=== PATIENT | male | born 1980 | race African-American/Black ===

== ENCOUNTER 2023-12-26 14:51 | Emergency (ER) | payer OTHER, SELFPAY ==
[2023-12-26 15:18] VITALS: PULSE 75; O2SAT 97; BMI 65.8
[2023-12-26 15:35] VITALS: BP 145/85; PULSE 78; RESP 18; TEMP 36.6; O2SAT 96
[2023-12-26 15:45] LABS: Glucose, Whole Blood 111 mg/dL (60-115)
--- NOTE | 2023-12-26 16:32 | ED.MALEGU ---
HPI - Male Genitourinary General Chief complaint: Urogenital-Male Stated complaint: penis pain w/discharge,from [place] per ems Time Seen by Provider: 12/26/23 16:29 Source: patient Mode of arrival: EMS Limitations: no limitations History of Present Illness HPI Narrative: Patient diabetic came from [facility] for lesions on the penis for last few days with increased pain patient has been using the nystatin powder without much relief has small ulcerated area. Blood sugar well controlled no fever no chills Related Data Previous Rx's Medication Instructions Recorded cefuroxime axetil 500 mg tablet 500 mg PO BID 7 days #14 tabs 12/26/23 nystatin 100,000 unit/gram topical 1 appl topical BID #60 grams 12/26/23 powder (Klayesta) tramadol 50 mg tablet 50 mg PO Q6H PRN pain #20 tabs 12/26/23 valacyclovir 1 gram tablet 1,000 mg PO TID #20 tabs 12/26/23 (Valtrex) Allergies Allergy/AdvReac Type Severity Reaction Status Date / Time No Known Allergies Allergy Verified 12/26/23 15:56 Review of Systems Review of Systems: Yes all other systems are reviewed and are negative [facility] Social History Social History Smoked in Last 30 Days: Yes Use of substances other than those prescribed or required for medical reasons: No Advance Directives: No Advance Directives Information Provided: No Physical Exam Vital Signs: Vital Signs: Last Vital Signs Temp 97.8 F 12/26/23 15:35 Pulse 110 H 12/26/23 16:41 Resp 16 12/26/23 16:41 BP 129/88 12/26/23 16:41 Pulse Ox 96 12/26/23 16:41 O2 Del Method Room Air 12/26/23 16:41 BMI result Body Mass Index 65.8 Appearance: Alert. Oriented X3. No acute distress. Obese CVS: Normal heart rate and rhythm. Pulses normal. Respiratory: No respiratory distress. Equal air entry bilateral, Abdomen: Soft and nontender. Bowel sounds are present, : Inflamed circumcised penis and the skin around the difficult to evaluate because of the habitus does have ulcerative lesions on the left side skin of the penis and groin area? Herpes genitalis? Neuro: Oriented X 3. Medications Administered Discontinued Medications Generic Name Dose Route Start Last Admin Trade Name Luz PRN Reason Stop Dose Admin Cephalexin HCl 500 mg 12/26/23 16:44 12/26/23 16:51 Cephalexin 500 Mg Capsule PO 12/26/23 16:45 500 mg ONCE ONE Administration Fluconazole 100 mg 12/26/23 16:44 12/26/23 16:51 Fluconazole 100 Mg Tablet PO 12/26/23 16:45 100 mg ONCE ONE Administration Tramadol HCl 50 mg 12/26/23 16:54 12/26/23 17:00 Tramadol Hcl 50 Mg Tablet PO 12/26/23 16:55 50 mg ONCE ONE Administration Valacyclovir HCl 1,000 mg 12/26/23 16:44 12/26/23 16:51 Valacyclovir Hcl 1,000 Mg Tablet PO 12/26/23 16:45 1,000 mg ONCE ONE Administration Medical Decision Making Medical Decision Making [facility] Narrative: Patient with intertrigo in the scrotal area along with ulcerated lesion likely shingles with increased pain will prescribe Valtrex, Keflex, advised to continue his nystatin powder Differential Diagnosis Differential Diagnoses: The differential diagnosis associated with the presentation includes UTI/STI/herpes/balanitis Lab Data [facility] Lab Attestation statement: I reviewed the patient's lab results. Labs: Lab Results 12/26/23 12/26/23 Range/Units 15:41 16:53 POC Glucose 111 (60-115) mg/dL Urine Color Yellow Urine Appearance Hazy Urine pH 5.5 (5.0-9.0) Ur Specific [place] >= 1.030 H (1.005-1.025) Urine Protein 30 (1+) H (Neg-Trace) mg/dL Urine Glucose (UA) Negative (Negative) mg/dL Urine Ketones Trace (Negative) mg/dL Urine Blood Moderate (2+) H (Negative) Urine Nitrite Negative (Negative) Ur Leukocyte Esterase Moderate (2+) H (Negative) Urine RBC >20 H (0-2) /HPF Urine WBC >50 H (0-5) /HPF Ur Squamous Epith Cells 3-5 (0-2) /HPF Urine Bacteria 3+ (None Seen) Hyaline Casts 3-5 (0-2) /LPF Discharge Plan Discharge Clinical Impression: Urinary tract infection, 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, Candidal intertrigo Patient Disposition: Home, Self-Care Instructions: Genital Herpes Simplex (ED), Urinary Tract Infection in Men (ED), Skin Yeast Infection (ED) Additional Instructions: Take medication as prescribed for likely herpes lesions Antibiotic for UTI and skin infection Continue to use nystatin powder twice daily Tramadol for pain Follow with PCP if not better Prescriptions: New tramadol 50 mg tablet 50 mg PO Q6H PRN (Reason: pain) Qty: 20 0RF cefuroxime axetil 500 mg tablet 500 mg PO BID 7 Days Qty: 14 0RF valacyclovir [Valtrex] 1 gram tablet 1,000 mg PO TID Qty: 20 0RF nystatin [Klayesta] 100,000 unit/gram powder 1 appl topical BID Qty: 60 0RF Interventions: ED Discharge Assessment Last Done: 12/26/23 18:15 Discharge Date/Time: 12/26/23 18:17
[2023-12-26 16:41] VITALS: BP 129/88; PULSE 110; RESP 16; O2SAT 96
[2023-12-26] MEDS: valACYclovir HCL 1,000 MG TABLET 1000 MG PO (16:51)
[2023-12-26] MEDS: Fluconazole 100 MG TABLET PO (16:51)
[2023-12-26] MEDS: cephALEXin 500 MG CAPSULE PO (16:51)
[2023-12-26] MEDS: traMADoL HCL 50 MG TABLET PO (17:00)
[2023-12-26 17:12] LABS: Appearance Urine Hazy; Color Urine Yellow; Glucose Urine UA Negative (Negative); Leukocyte Esterase Urine Moderate (2+) (Negative); Nitrite Urine Negative (Negative); PH 5.5 (5.0-9.0); Specific Gravity - Urine >= 1.030 (1.005-1.025); UMIC TRIGGER UACC YES; Urine Blood Moderate (2+) (Negative); Urine Ketones Trace mg/dL (Negative); Urine Protein 30 (1+) mg/dL (Neg-Trace)
[2023-12-26 17:19] LABS: Bacteria Urine 3+ (None Seen); RBC Urine >20 /HPF (0-2); UACC Culture Trigger YES; WBC Urine >50 /HPF (0-5)
--- NOTE | 2023-12-26 18:15 | PC.NURSE ---
report called to milton ann rn, informed of impending arrival from [facility] [place]
[2023-12-27 09:39] LABS: CT PCR NOT DETECTED (Not Detect.); NG PCR NOT DETECTED (Not Detect.)
== END 2023-12-26 18:17 | disposition home or self-care (01) ==
PROVIDERS: Emergency Provider Internal Medicine
DX: N39.0 Urinary tract infection, site not specified (principal); B00.9 Herpesviral infection, unspecified; L30.4 Erythema intertrigo; B37.2 Candidiasis of skin and nail; N48.89 Other specified disorders of penis; Z72.89 Other problems related to lifestyle
CPT/HCPCS: 0353U; 81001; 81003; 82947; 87086; 87147; 99283; 99284

== ENCOUNTER 2024-09-22 07:03 | Inpatient (IN) | payer MEDICARE, MEDICAID, SELFPAY ==
[2024-09-22] VITALS (10 sets, daily range): BP systolic 120–146; BP diastolic 36–95; PULSE 114–140; RESP 20–46; TEMP 36.4–36.9; O2SAT 86–97; BMI 66.6
--- NOTE | 2024-09-22 | ECG_ITS ---
Test Reason : TACHY Blood Pressure : / mmHG Vent. Rate : 119 BPM Atrial Rate : 119 BPM P-R Int : 160 ms QRS Dur : 072 ms QT Int : 312 ms P-R-T Axes : 049 045 042 degrees QTc Int : 438 ms Sinus tachycardia Otherwise normal ECG When compared with ECG of 22-SEP-2024 07:35, No significant change was found Referred By: Jovany Murrell Electronically Signed By:Rosendo Alvarez
--- NOTE | ~2024-09-22 | CT_ITS ---
EXAMINATION: CT CHEST WITHOUT CONTRAST CLINICAL INFORMATION: Shortness of breath. COMPARISON: Chest radiograph from 09/22/2024. TECHNIQUE: Multidetector volumetric CT imaging of the chest was done. Axial MIP volume rendering provided. Sagittal and coronal reformatted images were obtained. This CT examination was performed using dose optimization techniques as appropriate, variously including the following: *Automated exposure control. *Adjustment of mA and/or kV according to patient size (this includes techniques or standardized protocols for targeted exams where dose is matched to indication/reason for exam; i.e. extremities or head). *Use of iterative reconstruction technique. DLP: 718 mGy-cm FINDINGS: LUNGS: Mild bilateral dependent atelectasis. Moderate interlobular septal thickening and patchy groundglass opacification of the right greater than left upper lungs. No dense focal consolidative process. No evidence of additional diffuse or focal lung parenchymal abnormalities. No pleural effusion or pneumothorax. The airways remain patent. MEDIASTINUM: The cardiac structures are without significant demonstrated abnormality. No pericardial effusion. No mediastinal free fluid or gas. No hilar or mediastinal lymphadenopathy. Coronary artery calcifications: Present - mild. AXILLA: No lymphadenopathy. UPPER ABDOMEN: Hepatic steatosis (34 Hounsfield units). Otherwise, limited evaluation of the upper abdomen without significant soft tissue abnormalities. VASCULATURE: The thoracic aorta is of normal contour and caliber with mild calcific atherosclerotic disease. Anterior chest wall varices. OSSEOUS STRUCTURES: Moderate multilevel degenerative changes of the spine. No suspicious lytic or sclerotic osseous lesions demonstrated. No soft tissue masses demonstrated. CT/CT chest wo IV con IMPRESSION: 1. Moderate interlobular septal thickening and patchy groundglass opacification of the right greater than left upper lungs. This appearance may be seen with interstitial pulmonary edema, although the upper lung distribution would be somewhat atypical (potentially due to patient positioning). Developing atypical/viral pulmonary infection could have a similar appearance in the appropriate clinical setting. 2. Hepatic steatosis. Electronically signed by: Crow Greer DO 09/26/2024 02:08 AM EDT
--- NOTE | ~2024-09-22 | XR_ITS ---
EXAMINATION: XR CHEST CLINICAL INFORMATION: Dyspnea COMPARISON: None available. TECHNIQUE: 2 views of the chest were obtained. Today's examination is limited secondary to patient body habitus. FINDINGS: Cardiac silhouette is at the upper limits of normal in size. The lungs are adequately aerated. There is mild prominence of the central pulmonary vasculature and interstitial markings. There is no gross lobar consolidation. No pleural effusion or pneumothorax. Mild to moderate degenerative changes of the spine. XR/XR chest 2V IMPRESSION: Mildly prominent central pulmonary vasculature and interstitial markings are most suggestive of pulmonary edema, however, today's examination is limited secondary to patient body habitus. Viral infiltrate not completely excluded. Follow-up imaging recommended status post treatment to ensure resolution. Electronically signed by: Jeffrey Briseno MD 09/22/2024 08:13 AM EDT
--- NOTE | 2024-09-22 07:17 | ECG_ITS ---
Test Reason : TACHY Blood Pressure : / mmHG Vent. Rate : 138 BPM Atrial Rate : 138 BPM P-R Int : 142 ms QRS Dur : 062 ms QT Int : 288 ms P-R-T Axes : 060 042 033 degrees QTc Int : 436 ms Sinus tachycardia Low voltage QRS Borderline ECG No previous ECGs available Referred By: Florin Mclean Electronically Signed By:Rosendo Alvarez
[2024-09-22 07:18] LABS: Glucose, Whole Blood 577 mg/dL (60-115)
--- NOTE | 2024-09-22 07:18 | ED.GENADULT ---
HPI - General Adult General Chief complaint: Dyspnea Stated complaint: DIFF BREATHING,HX ASTHMA, 1 WORD SENTENCES PER EMS Time Seen by Provider: 09/22/24 07:18 Source: patient, EMS and RN notes reviewed Mode of arrival: EMS Limitations: no limitations History of Present Illness ED Provider: Vida HPI narrative: Patient is a 43-year-old male with history of DM, asthma presenting to the emergency department with complaint of difficulty breathing since this morning, also complaints in urinary frequency over the past week, lower abdominal bloating, right flank pain. Denies fevers. States has not taken his Humalog since Tuesday because he felt it was making him bloated. Denies abdominal pain, nausea, vomiting, diarrhea. Complains of chest pain/tightness. MD complaint: shortness of breath Onset (ago): day(s) Treatments prior to arrival: none Related Data Home Medications ?Medication ?Instructions ?Recorded ?Confirmed dulaglutide 4.5 mg/0.5 mL 4.5 mg subcut ARREGUIN 09/22/24 09/22/24 subcutaneous pen injector (Trulicity) fluticasone propionate 115 2 puff inhalation BID Shortness Of 09/22/24 09/22/24 mcg-salmeterol 21 mcg/actuation Breath Or Wheezing HFA inhaler (Advair HFA) gabapentin 300 mg capsule 300 mg PO BID 09/22/24 09/22/24 ibuprofen 800 mg tablet 800 mg PO Q8H PRN pain 09/22/24 09/22/24 insulin regular hum U-500 conc 500 75 unit subcut BID@1200,1700 09/22/24 09/22/24 unit/mL(3 mL) subcut pen (Humulin R U-500 (Conc) Insulin Kwikpen) insulin regular hum U-500 conc 500 100 unit subcut DAILY@0800 09/22/24 09/22/24 unit/mL(3 mL) subcut pen (Humulin R U-500 (Conc) Insulin Kwikpen) lamotrigine 25 mg tablet 25 mg PO BEDTIME 09/22/24 09/22/24 metformin 500 mg tablet,extended 1,000 mg PO BID 09/22/24 09/22/24 release 24 hr prazosin 2 mg capsule 2 mg PO BEDTIME 09/22/24 09/22/24 quetiapine 25 mg tablet 25 mg PO BEDTIME 09/22/24 09/22/24 quetiapine 25 mg tablet 25 mg PO DAILY PRN Agitation 09/22/24 09/22/24 Allergies Allergy/AdvReac Type Severity Reaction Status Date / Time No Known Allergies Allergy Verified 09/22/24 07:21 Review of Systems Review of Systems: As per HPI Yes all other systems are reviewed and are negative Constitutional: Constitutional: Reports as per HPI [facility] Social History Social History Advance Directives: No Advance Directives Information Provided: No Do you have a plan to hurt others: No Plan Physical Exam ED Vital Signs: Vital Signs - 24 hr 09/22/24 07:13 09/22/24 07:32 09/22/24 08:16 Temperature 97.6 F Pulse Rate 139 H 134 H 134 H Respiratory Rate 38 H 36 H 46 H Blood Pressure 122/36 L Pulse Oximetry 93 92 Oxygen Delivery Method Oxymask Oxymask Oxygen Flow Rate 9 09/22/24 09:49 09/22/24 10:42 09/22/24 14:49 Temperature 98.4 F 98.5 F Pulse Rate 128 H 116 H 114 H Respiratory Rate 36 H 30 H 28 H Blood Pressure 120/60 120/95 H 146/87 H Pulse Oximetry 92 94 97 Oxygen Delivery Method Oxymask Oxymask Oxygen Flow Rate 10 BMI result Body Mass Index 66.6 Const General: cooperative and in distress mild and respiratory Nutritional Appearance: obese morbidly obese Orientation/consciousness: oriented to person, oriented to place, oriented to time and patient oriented x3 Limitations: no limitations HENCT Head: Yes normocephalic and Yes atraumatic Ears: external ears normal General nose exam: Normal external nose present Face and sinus: Yes face symmetric Mouth: oropharynx normal and moist mucous membranes Throat: Yes uvula midline Eyes Pupils: Equal, round and reactive pupils present Neck Neck: Yes normal visual inspection and Yes supple Resp Effort & Inspection: not able to speak in complete sentences, no cough, labored, no retractions, tachypneic, no tripod positioning and uses accessory muscles Auscultation: diminished lung sounds diffuse Cardio Rate: regular rate Rhythm: regular rhythm Heart sounds: S1 normal heart sound present and S2 normal heart sound present GI Palpation (GI): Soft to palpation and nontender Auscultation: normoactive bowel sounds Skin General skin exam: elasticity normal and turgor normal Neuro General: oriented to person, oriented to place, oriented to time, patient oriented x3, moves all extremities, no focal motor deficits and CN's II-XI intact bilaterally Cranial nerves: Yes Equal, round and reactive pupils present Cognition (Neuro): normal cognition Extrem General: Yes full ROM, Yes no pedal edema and Yes no calf tenderness Psych Mental Status: mental status grossly normal Affect: normal affect Thought process: Normal thought process present Medications Administered Discontinued Medications Generic Name Dose Route Start Last Admin Trade Name Hosseinq PRN Reason Stop Dose Admin Acetaminophen 975 mg 09/22/24 08:05 09/22/24 08:10 Acetaminophen 325 Mg Tablet PO 09/22/24 08:06 975 mg ONCE ONE Administration Azithromycin 500 mg 09/22/24 10:40 09/22/24 11:03 Azithromycin 500 Mg Tablet PO 09/22/24 10:41 500 mg ONCE ONE Administration Ceftriaxone Sodium 1 gm 09/22/24 08:27 09/22/24 09:15 Ceftriaxone Sodium 1 Gm Vial IVPUSH 09/22/24 08:28 1 gm ONCE ONE Administration Albuterol Sulfate 5 mg/ 0 mg 09/22/24 07:32 09/22/24 07:35 Albuterol/Ipratropium 3 ml INHALE 09/22/24 07:33 7.5 each ONCE ONE Administration Lactated Ringer's 1,914 mls @ 1,914 mls/hr 09/22/24 09:36 09/22/24 10:45 Lr IV 09/22/24 10:35 Infused .Q1H ONE Infusion Lactated Ringer's 1,000 mls @ 999 mls/hr 09/22/24 12:30 09/22/24 13:45 Lr IV 09/22/24 13:30 Infused .Q1H1M AFTAB Infusion Ibuprofen 600 mg 09/22/24 08:05 09/22/24 08:10 Ibuprofen 600 Mg Tablet PO 09/22/24 08:06 600 mg ONCE ONE Administration Insulin Human Lispro 5 unit 09/22/24 08:53 09/22/24 09:15 Insulin Lispro 100 Unit/Ml 3 Ml Vial SUBCUT 09/22/24 08:54 5 unit ONCE ONE Administration Insulin Human Regular 10 unit 09/22/24 11:38 09/22/24 11:56 Insulin Regular, Human 100 Unit/Ml 10 Ml Vial IVPUSH 09/22/24 11:39 10 unit ONCE ONE Administration Insulin Human Regular 10 unit 09/22/24 13:15 09/22/24 14:10 Insulin Regular, Human 100 Unit/Ml 10 Ml Vial IVPUSH 09/22/24 13:16 10 unit ONCE ONE Administration Methylprednisolone Sodium Succinate 125 mg 09/22/24 08:28 09/22/24 09:15 Methylprednisolone Sod Succ 125 Mg/2 Ml Vial IVPUSH 09/22/24 08:29 125 mg ONCE ONE Administration Medical Decision Making Medical Decision Making [facility] Narrative: Patient is a 43-year-old male with history of DM, asthma presenting to the emergency department with complaint of difficulty breathing since this morning, also complaints in urinary frequency over the past week, lower abdominal bloating, right flank pain. On exam patient is awake, A+Ox3, tachypneic, tachycardic on arrival, afebrile, normal neurological exam without focal deficits, physical exam findings as above. Oxygen applied by nursing, ED bronch protocol ordered. Given reported symptoms and physical exam findings, initial differential includes asthma exacerbation, viral illness, bronchitis, pneumonia, DKA, electrolyte abnormalities. Labs notable for leukocytosis with left shift, hyperglycemia without anion gap. X-ray chest notable for pulmonary edema versus viral infiltrate. My interpretation is in agreement with the radiologist's interpretation. 09:30 Patient now expressing to RN that he also has not been taking his psychiatric medications and would like to speak to CARE team. Denies SI/HI. 9:35 Lactic of 5.2 received from lab, LS based on IBQ ordered as patient is morbidly obese. Meets sepsis criteria, abx ordered. Patient also received 1L NS prehospital. Azithromycin also ordered to cover mycobacterium. Admission for sepsis accepted by Dr. Bhandari. Differential Diagnosis Differential Diagnoses: The differential diagnosis associated with the presentation includes As per [facility] Admission/Observation Consideration of admission/observation: Escalation of care including admission/observation considered Consult Healthcare Provider Management of the patient was discussed with: Hospitalist Lab Data [facility] Lab Attestation statement: I reviewed the patient's lab results. As per [facility] 09/22/24 07:56 09/22/24 07:56 Labs: Lab Results 09/22/24 09/22/24 09/22/24 Range/Units 07:13 07:30 07:56 WBC 14.8 H (4.8-10.8) X10*3/uL RBC 4.10 L (4.60-5.80) X10*6/uL Hgb 13.2 L (14.0-18.0) g/dl Hct 39.6 L (42.0-52.0) % MCV 96.6 (80.0-98.0) fL MCH 32.2 (27.0-33.0) pg MCHC 33.3 (31.0-36.0) g/dl RDW 12.6 (11.0-16.0) % Plt Count 145 L (160-400) X10*3/uL MPV 10.7 (9.4-12.4) fL Immature Gran % (Auto) 0.7 H (0.0-0.4) % Neut % (Auto) 83.3 H (45-73) % Lymph % (Auto) 7.2 L (20-40) % [place] % (Auto) 8.7 (2-11) % Eos % (Auto) 0.0 (0-4) % Baso % (Auto) 0.1 (0-2) % Lymph # (Auto) 1.1 L (1.2-4.9) X10*3/uL [place] # (Auto) 1.3 H (0.1-1.2) X10*3/uL Eos # (Auto) 0.0 (0.0-0.4) X10*3/uL Baso # (Auto) 0.0 (0.0-0.2) X10*3/uL Abs Immat Gran (auto) 0.11 H (0.00-0.03) X10*3/uL Absolute Neuts (auto) 12.3 H (2.0-8.3) x10*3/uL Absolute Nucleated RBC 0.000 (0.0-0.012) X10*3/uL Nucleated RBC % (auto) 0.0 (0.0-0.2) /100WBC D-Dimer High Sensitivty NG/ML VBG pH (7.32-7.43) VBG pCO2 mmHg VBG pO2 mmHg VBG HCO3 (22-26) mmol/L VBG O2 Saturation % VBG Base Excess mmol/L Sodium 134 L (135-145) mmol/L Potassium 4.7 (3.3-5.1) mmol/L Chloride 98 (96-108) mmol/L Carbon Dioxide 20 L (22-29) mmol/L Anion Gap 21 H (12-20) BUN 10 (9-16) mg/dL Creatinine 1.39 (0.5-1.4) mg/dL Estim Creat Clear Calc 111.9 Estimated GFR 56 POC Glucose 577 H* (60-115) mg/dL Random Glucose 584 H* (60-115) mg/dL Lactic Acid (0.5-2.0) mmol/L Lactic Acid F/U @ 2Hr (0.5-2.0) mmol/L Lactic Acid F/U @ 4Hr (0.5-2.0) mmol/L Calcium 9.1 (8.4-10.2) mg/dL Total Bilirubin 0.7 (0.0-1.0) mg/dL AST 47 H (5-37) U/L ALT 47 H (0-40) U/L Alkaline Phosphatase 68 (39-117) U/L Troponin I High Sens < 2.7 (<3.5-35.0) ng/L B-Natriuretic Peptide 15 (<100) pg/mL Total Protein 7.7 (6.5-8.0) g/dL Albumin 3.8 (3.5-5.0) g/dL Beta-Hydroxybutyrate 2.66 H (0.02-0.27) mmol/L Urine Color Yellow Urine Appearance Clear Urine pH 5.5 (5.0-9.0) Ur Specific [place] >= 1.030 H (1.005-1.025) Urine Protein Negative (Neg-Trace) mg/dL Urine Glucose (UA) >=1000 H (Negative) mg/dL Urine Ketones 80 (Negative) mg/dL Urine Blood Negative (Negative) Urine Nitrite Negative (Negative) Ur Leukocyte Esterase Negative (Negative) Urine RBC 0-2 (0-2) /HPF Urine WBC 0-5 (0-5) /HPF Ur Squamous Epith Cells 0-2 (0-2) /HPF Urine Bacteria None Seen (None Seen) Hyaline Casts 0-2 (0-2) /LPF Influenza Type A (PCR) NEGATIVE (Negative) Influenza Type B (PCR) NEGATIVE (Negative) RSV RNA Qual (PCR) NEGATIVE (Negative) SARS-CoV-2 RNA (RT-PCR) NEGATIVE (Negative) 09/22/24 09/22/24 09/22/24 Range/Units 08:03 09:04 11:02 WBC (4.8-10.8) X10*3/uL RBC (4.60-5.80) X10*6/uL Hgb (14.0-18.0) g/dl Hct (42.0-52.0) % MCV (80.0-98.0) fL MCH (27.0-33.0) pg MCHC (31.0-36.0) g/dl RDW (11.0-16.0) % Plt Count (160-400) X10*3/uL MPV (9.4-12.4) fL Immature Gran % (Auto) (0.0-0.4) % Neut % (Auto) (45-73) % Lymph % (Auto) (20-40) % [place] % (Auto) (2-11) % Eos % (Auto) (0-4) % Baso % (Auto) (0-2) % Lymph # (Auto) (1.2-4.9) X10*3/uL [place] # (Auto) (0.1-1.2) X10*3/uL Eos # (Auto) (0.0-0.4) X10*3/uL Baso # (Auto) (0.0-0.2) X10*3/uL Abs Immat Gran (auto) (0.00-0.03) X10*3/uL Absolute Neuts (auto) (2.0-8.3) x10*3/uL Absolute Nucleated RBC (0.0-0.012) X10*3/uL Nucleated RBC % (auto) (0.0-0.2) /100WBC D-Dimer High Sensitivty < 150 NG/ML VBG pH 7.31 L (7.32-7.43) VBG pCO2 41 mmHg VBG pO2 48 mmHg VBG HCO3 21 L (22-26) mmol/L VBG O2 Saturation 71.0 % VBG Base Excess -4.9 mmol/L Sodium (135-145) mmol/L Potassium (3.3-5.1) mmol/L Chloride (96-108) mmol/L Carbon Dioxide (22-29) mmol/L Anion Gap (12-20) BUN (9-16) mg/dL Creatinine (0.5-1.4) mg/dL Estim Creat Clear Calc Estimated GFR POC Glucose (60-115) mg/dL Random Glucose (60-115) mg/dL Lactic Acid 5.2 H* (0.5-2.0) mmol/L Lactic Acid F/U @ 2Hr (0.5-2.0) mmol/L Lactic Acid F/U @ 4Hr (0.5-2.0) mmol/L Calcium (8.4-10.2) mg/dL Total Bilirubin (0.0-1.0) mg/dL AST (5-37) U/L ALT (0-40) U/L Alkaline Phosphatase (39-117) U/L Troponin I High Sens (<3.5-35.0) ng/L B-Natriuretic Peptide (<100) pg/mL Total Protein (6.5-8.0) g/dL Albumin (3.5-5.0) g/dL Beta-Hydroxybutyrate (0.02-0.27) mmol/L Urine Color Urine Appearance Urine pH (5.0-9.0) Ur Specific [place] (1.005-1.025) Urine Protein (Neg-Trace) mg/dL Urine Glucose (UA) (Negative) mg/dL Urine Ketones (Negative) mg/dL Urine Blood (Negative) Urine Nitrite (Negative) Ur Leukocyte Esterase (Negative) Urine RBC (0-2) /HPF Urine WBC (0-5) /HPF Ur Squamous Epith Cells (0-2) /HPF Urine Bacteria (None Seen) Hyaline Casts (0-2) /LPF Influenza Type A (PCR) (Negative) Influenza Type B (PCR) (Negative) RSV RNA Qual (PCR) (Negative) SARS-CoV-2 RNA (RT-PCR) (Negative) 09/22/24 09/22/24 09/22/24 Range/Units 11:36 12:06 13:06 WBC (4.8-10.8) X10*3/uL RBC (4.60-5.80) X10*6/uL Hgb (14.0-18.0) g/dl Hct (42.0-52.0) % MCV (80.0-98.0) fL MCH (27.0-33.0) pg MCHC (31.0-36.0) g/dl RDW (11.0-16.0) % Plt Count (160-400) X10*3/uL MPV (9.4-12.4) fL Immature Gran % (Auto) (0.0-0.4) % Neut % (Auto) (45-73) % Lymph % (Auto) (20-40) % [place] % (Auto) (2-11) % Eos % (Auto) (0-4) % Baso % (Auto) (0-2) % Lymph # (Auto) (1.2-4.9) X10*3/uL [place] # (Auto) (0.1-1.2) X10*3/uL Eos # (Auto) (0.0-0.4) X10*3/uL Baso # (Auto) (0.0-0.2) X10*3/uL Abs Immat Gran (auto) (0.00-0.03) X10*3/uL Absolute Neuts (auto) (2.0-8.3) x10*3/uL Absolute Nucleated RBC (0.0-0.012) X10*3/uL Nucleated RBC % (auto) (0.0-0.2) /100WBC D-Dimer High Sensitivty NG/ML VBG pH (7.32-7.43) VBG pCO2 mmHg VBG pO2 mmHg VBG HCO3 (22-26) mmol/L VBG O2 Saturation % VBG Base Excess mmol/L Sodium (135-145) mmol/L Potassium (3.3-5.1) mmol/L Chloride (96-108) mmol/L Carbon Dioxide (22-29) mmol/L Anion Gap (12-20) BUN (9-16) mg/dL Creatinine (0.5-1.4) mg/dL Estim Creat Clear Calc Estimated GFR POC Glucose 544 H* 421 H* (60-115) mg/dL Random Glucose (60-115) mg/dL Lactic Acid (0.5-2.0) mmol/L Lactic Acid F/U @ 2Hr 4.7 H* (0.5-2.0) mmol/L Lactic Acid F/U @ 4Hr (0.5-2.0) mmol/L Calcium (8.4-10.2) mg/dL Total Bilirubin (0.0-1.0) mg/dL AST (5-37) U/L ALT (0-40) U/L Alkaline Phosphatase (39-117) U/L Troponin I High Sens (<3.5-35.0) ng/L B-Natriuretic Peptide (<100) pg/mL Total Protein (6.5-8.0) g/dL Albumin (3.5-5.0) g/dL Beta-Hydroxybutyrate (0.02-0.27) mmol/L Urine Color Urine Appearance Urine pH (5.0-9.0) Ur Specific [place] (1.005-1.025) Urine Protein (Neg-Trace) mg/dL Urine Glucose (UA) (Negative) mg/dL Urine Ketones (Negative) mg/dL Urine Blood (Negative) Urine Nitrite (Negative) Ur Leukocyte Esterase (Negative) Urine RBC (0-2) /HPF Urine WBC (0-5) /HPF Ur Squamous Epith Cells (0-2) /HPF Urine Bacteria (None Seen) Hyaline Casts (0-2) /LPF Influenza Type A (PCR) (Negative) Influenza Type B (PCR) (Negative) RSV RNA Qual (PCR) (Negative) SARS-CoV-2 RNA (RT-PCR) (Negative) 09/22/24 09/22/24 Range/Units 14:43 14:53 WBC (4.8-10.8) X10*3/uL RBC (4.60-5.80) X10*6/uL Hgb (14.0-18.0) g/dl Hct (42.0-52.0) % MCV (80.0-98.0) fL MCH (27.0-33.0) pg MCHC (31.0-36.0) g/dl RDW (11.0-16.0) % Plt Count (160-400) X10*3/uL MPV (9.4-12.4) fL Immature Gran % (Auto) (0.0-0.4) % Neut % (Auto) (45-73) % Lymph % (Auto) (20-40) % [place] % (Auto) (2-11) % Eos % (Auto) (0-4) % Baso % (Auto) (0-2) % Lymph # (Auto) (1.2-4.9) X10*3/uL [place] # (Auto) (0.1-1.2) X10*3/uL Eos # (Auto) (0.0-0.4) X10*3/uL Baso # (Auto) (0.0-0.2) X10*3/uL Abs Immat Gran (auto) (0.00-0.03) X10*3/uL Absolute Neuts (auto) (2.0-8.3) x10*3/uL Absolute Nucleated RBC (0.0-0.012) X10*3/uL Nucleated RBC % (auto) (0.0-0.2) /100WBC D-Dimer High Sensitivty NG/ML VBG pH (7.32-7.43) VBG pCO2 mmHg VBG pO2 mmHg VBG HCO3 (22-26) mmol/L VBG O2 Saturation % VBG Base Excess mmol/L Sodium (135-145) mmol/L Potassium (3.3-5.1) mmol/L Chloride (96-108) mmol/L Carbon Dioxide (22-29) mmol/L Anion Gap (12-20) BUN (9-16) mg/dL Creatinine (0.5-1.4) mg/dL Estim Creat Clear Calc Estimated GFR POC Glucose 387 H* (60-115) mg/dL Random Glucose (60-115) mg/dL Lactic Acid (0.5-2.0) mmol/L Lactic Acid F/U @ 2Hr (0.5-2.0) mmol/L Lactic Acid F/U @ 4Hr 2.9 H* (0.5-2.0) mmol/L Calcium (8.4-10.2) mg/dL Total Bilirubin (0.0-1.0) mg/dL AST (5-37) U/L ALT (0-40) U/L Alkaline Phosphatase (39-117) U/L Troponin I High Sens (<3.5-35.0) ng/L B-Natriuretic Peptide (<100) pg/mL Total Protein (6.5-8.0) g/dL Albumin (3.5-5.0) g/dL Beta-Hydroxybutyrate (0.02-0.27) mmol/L Urine Color Urine Appearance Urine pH (5.0-9.0) Ur Specific [place] (1.005-1.025) Urine Protein (Neg-Trace) mg/dL Urine Glucose (UA) (Negative) mg/dL Urine Ketones (Negative) mg/dL Urine Blood (Negative) Urine Nitrite (Negative) Ur Leukocyte Esterase (Negative) Urine RBC (0-2) /HPF Urine WBC (0-5) /HPF Ur Squamous Epith Cells (0-2) /HPF Urine Bacteria (None Seen) Hyaline Casts (0-2) /LPF Influenza Type A (PCR) (Negative) Influenza Type B (PCR) (Negative) RSV RNA Qual (PCR) (Negative) SARS-CoV-2 RNA (RT-PCR) (Negative) Independent Interpretation I performed an independent interpretation of an: EKG (sinus tachycardia, rate 138bpm, normal UT interval and QTc) and Plain X-Ray Interpretation: X-ray chest notable for pulmonary edema versus viral infiltrate. Radiology Impression Discussion of test interpretation with radiology: I have reviewed the radiologist's reading. Radiologist Impression: XR/XR chest 2V IMPRESSION: Mildly prominent central pulmonary vasculature and interstitial markings are most suggestive of pulmonary edema, however, today's examination is limited secondary to patient body habitus. Viral infiltrate not completely excluded. Follow-up imaging recommended status post treatment to ensure resolution. External Record Review External record reviewed: Inpatient record, Office record and Outpatient record Prescription Management I considered prescription management with: Antibiotic Chronic Conditions Patient?s care impacted by: Diabetes Critical Care Time Critical Care Time Critical Care Time: Yes Total Critical Care Time: 40 Attestation: I have personally provided critical care time exclusive of time spent on separately billable procedures. Time includes review of lab data, radiology results, discussion with consultants, and monitoring for potential decompensation. Intervention performed as documented. Discharge Plan Discharge Clinical Impression: Sepsis, Asthma with exacerbation Patient Disposition: Admitted As Inpatient Print Language: Vietnamese
[2024-09-22] MEDS: Albuterol Sulfate 5 MG, Albuterol/Iprat 2.5/0.5MG 3 ML 3 ML INHALE (07:35)
[2024-09-22 07:54] LABS: Appearance Urine Clear; Color Urine Yellow; Glucose Urine UA >=1000 mg/dL (Negative); Leukocyte Esterase Urine Negative (Negative); Nitrite Urine Negative (Negative); PH 5.5 (5.0-9.0); Specific Gravity - Urine >= 1.030 (1.005-1.025); UMIC TRIGGER UACC YES; Urine Blood Negative (Negative); Urine Ketones 80 mg/dL (Negative); Urine Protein Negative (Neg-Trace)
[2024-09-22 08:03] LABS: MANUAL DIFF FLAG NO
[2024-09-22 08:04] LABS: Bacteria Urine None Seen (None Seen); Hyaline Casts Urine 0-2 /LPF (0-2); RBC Urine 0-2 /HPF (0-2); Squamous Epithelial Cell Urine 0-2 /HPF (0-2); WBC Urine 0-5 /HPF (0-5)
[2024-09-22 08:04] LABS: Basophils Percent Auto 0.1 % (0-2); Hematocrit 39.6 % (42.0-52.0); Hemoglobin 13.2 g/dl (14.0-18.0); Imm Gran Abs Auto 0.11 X10*3/uL (0.00-0.03); Imm Gran Pct Auto 0.7 % (0.0-0.4); Lymphocytes Absolute Auto 1.1 X10*3/uL (1.2-4.9); Lymphocytes Percent Auto 7.2 % (20-40); Mean Corpuscular HGB Conc 33.3 g/dl (31.0-36.0); Mean Corpuscular Hemoglobin 32.2 pg (27.0-33.0); Mean Corpuscular Volume 96.6 fL (80.0-98.0); Mean Platelet Volume 10.7 fL (9.4-12.4); Monocytes Absolute Auto 1.3 X10*3/uL (0.1-1.2); Monocytes Percent Auto 8.7 % (2-11); Neutrophils Absolute Auto 12.3 x10*3/uL (2.0-8.3); Neutrophils Percent Auto 83.3 % (45-73); Platelet Count 145 X10*3/uL (160-400); Red Cell Distribution Width 12.6 % (11.0-16.0); White Blood Count 14.8 X10*3/uL (4.8-10.8)
[2024-09-22] MEDS: Ibuprofen 600 MG TABLET PO (08:10)
[2024-09-22] MEDS: Acetaminophen 325 MG TABLET 975 MG PO (08:10)
[2024-09-22 08:13] LABS: VBG Base Excess -4.9 mmol/L; VBG HCO3 21 mmol/L (22-26); VBG pCO2 41 mmHg; VBG pH 7.31 (7.32-7.43); VBG pO2 48 mmHg
[2024-09-22 08:16] LABS: Venous Blood Gas Refer to POC result
--- NOTE | 2024-09-22 08:21 | PC.NURSE ---
coming from home for shortness of breath/cp for 4 hours after smoking all night. found to be hyperglycemic - has not taken insulin for days due to him not liking how it makes him feel. placed on oxymask 9L - oxyen 90-93%. continues to endorse chest pain/headache.
[2024-09-22 08:42] LABS: Influenza A PCR NEGATIVE (Negative); Influenza B PCR NEGATIVE (Negative); Resp Syncy Virus RNA Qual PCR NEGATIVE (Negative); SARS COV2 PCR INHOUSE NEGATIVE (Negative)
[2024-09-22 08:58] LABS: Alanine Aminotransferase 47 U/L (0-40); Albumin Level 3.8 g/dL (3.5-5.0); Alkaline Phosphatase 68 U/L (39-117); Anion Gap 21 (12-20); Aspartate Amino Transferase 47 U/L (5-37); Beta-Hydroxybutyrate 2.66 mmol/L (0.02-0.27); Bilirubin Total 0.7 mg/dL (0.0-1.0); Blood Urea Nitrogen 10 mg/dL (9-16); Calcium 9.1 mg/dL (8.4-10.2); Carbon Dioxide 20 mmol/L (22-29); Chloride 98 mmol/L (96-108); Creatinine Clr Calc Pharmacy 111.9; Estimated Glomerular Filt Rate 56; Glucose Random 584 mg/dL (60-115); Potassium 4.7 mmol/L (3.3-5.1); Sodium 134 mmol/L (135-145); Total Protein 7.7 g/dL (6.5-8.0); Troponin-I High Sensitivity < 2.7 ng/L (<3.5-35.0)
[2024-09-22] MEDS: Insulin Lispro 100 UNIT/ML 3 ML VIAL SUBCUT ×5 (09:15→21:59)
[2024-09-22] MEDS: cefTRIAXone sodium 1 GM VIAL IVPUSH (09:15)
[2024-09-22] MEDS: methylPREDNISolone Sod Succ 125 MG/2 ML VIAL IVPUSH (09:15)
[2024-09-22 09:34] LABS: Lactic Acid 5.2 mmol/L (0.5-2.0)
[2024-09-22 09:42] LABS: B Type Natriuretic Peptide 15 pg/mL (<100)
--- NOTE | 2024-09-22 09:57 | PC.NURSE ---
patient received 1L normal saline from EMS, medicated per the JAN. bilateral IV - 20g left hand 20g right ac. patient reporting some improvement with breathing however still unable to get comfortable in stretcher. voided approx 900mL urine into urinal during stay.
[2024-09-22] MEDS: Azithromycin 500 MG TABLET PO (11:03)
[2024-09-22 11:07] LABS: Reflex Lactate? Lactic Acid Added
[2024-09-22 11:39] LABS: Glucose, Whole Blood 544 mg/dL (60-115)
[2024-09-22] MEDS: Insulin Regular, Human 100 UNIT/ML 10 ML VIAL 10 UNIT IVPUSH ×2 (11:56→14:10)
[2024-09-22 12:10] LABS: D Dimer High Sensitivity < 150 NG/ML
[2024-09-22 12:25] LABS: ~Lactic Acid-LAB USE ONLY 4.7 mmol/L (0.5-2.0)
[2024-09-22] MEDS: Lactated Ringers 1,000 ML 999 ML IV (12:42)
--- NOTE | 2024-09-22 12:42 | PC.NURSE ---
patient appears more comfortable at this time, able to speak in full clear sentences. remains on oxymask. third liter of lr infusing at this time.
--- NOTE | 2024-09-22 13:05 | PHA.MEDREC ---
Addendum entered by Chinmay Vega 09/22/24 13:29: Reviewed Original Note: Pharmacy Consult ? Medication Reconciliation Pharmacy has completed the medication reconciliation. Spoke with patient to confirm medications. He ran out of his ventolin a long time ago and is only using the Advair BID (last fill on claims 03/02/24). His Trulicity is on . His Humulin is 100 units with breakfast and 75 units with lunch and dinner (he last had Tuesday). He reports all of his psych medications were started on and he last had them as well. His lamotrigine is to be started with 25 mg at bedtime x14 days and then increase to 2 tablets at bedtime daily (he is currently on the 1 tab at bedtime). His quetiapine is one tab at bedtime and one tab daily prn. He reports still taking prazosin, 1 cap at bedtime (last fill per claims is 05/16/24). He has not had his metformin since last week since it does not make him feel good. He finished his antibiotics for his tooth. He is not currently taking oxycodone for pain. He did not have any medications before coming here.
[2024-09-22 13:10] LABS: Glucose, Whole Blood 421 mg/dL (60-115)
[2024-09-22 14:08] LABS: Reflex Lactate? 2 Y
--- NOTE | 2024-09-22 14:20 | PC.NURSE ---
continues to complain of shortness of breath upon exertion, remains on oxymask.
[2024-09-22 14:47] LABS: Glucose, Whole Blood 387 mg/dL (60-115)
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
[2024-09-22 15:20] LABS: ~Lactic Acid-LAB USE ONLY 2.9 mmol/L (0.5-2.0)
[2024-09-22 16:26] LABS: Glucose, Whole Blood 392 mg/dL (60-115)
[2024-09-22 16:29] LABS: Estimated Average Glucose 338 mg/dL; Hemoglobin A1C 406.4843 umol/L; Hemoglobin A1c % 13.4 % (<6.0); Total Hemoglobin (HGBA1C) 3292.8906 umol/L
[2024-09-22 16:56] LABS: Anion Gap 18 (12-20); Blood Urea Nitrogen 11 mg/dL (9-16); Calcium 9.5 mg/dL (8.4-10.2); Carbon Dioxide 22 mmol/L (22-29); Chloride 101 mmol/L (96-108); Creatinine Clr Calc Pharmacy 126.5; Estimated Glomerular Filt Rate > 60; Glucose Random 430 mg/dL (60-115); Potassium 4.8 mmol/L (3.3-5.1); Sodium 136 mmol/L (135-145)
--- NOTE | 2024-09-22 16:56 | PC.NURSE ---
critical lab value - blood glucose of 430mg/dL. dr. baltazar notified/aware of results.
[2024-09-22] MEDS: 0.9 % Sodium Chloride Flush 3 ML SYRINGE IVFLUSH ×2 (17:09→21:59)
[2024-09-22] MEDS: Lactated Ringers 1,000 ML 125 ML IVCONT (17:13)
[2024-09-22] MEDS: Enoxaparin Sodium 40 MG/0.4 ML SYRINGE SUBCUT (18:31)
[2024-09-22] MEDS: levalbuterol HCL 1.25 MG/3 ML VIAL.NEB INHALE ×2 (18:41→22:20)
[2024-09-22 20:41] LABS: Glucose, Whole Blood 404 mg/dL (60-115)
[2024-09-22] MEDS: Insulin Glargine,Hum.rec.anlog 100 UNIT/ML 10 ML VIAL 30 UNIT SUBCUT (21:57)
[2024-09-22] MEDS: QUEtiapine Fumarate 25 MG TABLET PO (21:57)
[2024-09-22] MEDS: lamoTRIgine 25 MG TABLET PO (21:57)
[2024-09-22] MEDS: Prazosin HCL 1 MG CAPSULE 2 MG PO (21:57)
[2024-09-22] MEDS: Gabapentin 300 MG CAPSULE PO (21:57)
[2024-09-22] MEDS: Acetaminophen 325 MG TABLET 650 MG PO (23:55)
[2024-09-23] VITALS (11 sets, daily range): BP systolic 108–149; BP diastolic 59–94; PULSE 88–118; RESP 16–24; TEMP 36.2–37.2; O2SAT 88–98
--- NOTE | 2024-09-23 00:19 | PC.RT ---
Pt placed on overnight oximetry test on RA
--- NOTE | 2024-09-23 00:41 | PC.RT ---
Pt placed on 1L oxymask
[2024-09-23] MEDS: Lactated Ringers 1,000 ML 125 ML IVCONT ×2 (03:33→10:57)
[2024-09-23 06:42] LABS: Anion Gap 15 (12-20); Blood Urea Nitrogen 15 mg/dL (9-16); Calcium 9.3 mg/dL (8.4-10.2); Carbon Dioxide 21 mmol/L (22-29); Chloride 103 mmol/L (96-108); Creatinine Clr Calc Pharmacy 148.2; Estimated Glomerular Filt Rate > 60; Glucose Random 333 mg/dL (60-115); Sodium 134 mmol/L (135-145)
[2024-09-23] MEDS: levalbuterol HCL 1.25 MG/3 ML VIAL.NEB INHALE ×3 (07:41→20:58)
[2024-09-23 07:55] LABS: Glucose, Whole Blood 348 mg/dL (60-115)
[2024-09-23] MEDS: Gabapentin 300 MG CAPSULE PO ×2 (08:05→21:17)
[2024-09-23] MEDS: 0.9 % Sodium Chloride Flush 3 ML SYRINGE IVFLUSH ×3 (08:05→22:40)
[2024-09-23] MEDS: Insulin Lispro 100 UNIT/ML 3 ML VIAL SUBCUT ×8 (08:05→21:18)
--- NOTE | 2024-09-23 10:12 | ECG_ITS ---
Test Reason : CP Blood Pressure : / mmHG Vent. Rate : 113 BPM Atrial Rate : 113 BPM P-R Int : 154 ms QRS Dur : 074 ms QT Int : 310 ms P-R-T Axes : 051 045 041 degrees QTc Int : 425 ms Sinus tachycardia Otherwise normal ECG When compared with ECG of 22-SEP-2024 20:38, No significant change was found Referred By: Jovany Murrell Electronically Signed By:Rosendo Alvarez
[2024-09-23 10:18] LABS: Hematocrit 37.7 % (42.0-52.0); Hemoglobin 12.3 g/dl (14.0-18.0); Mean Corpuscular HGB Conc 32.6 g/dl (31.0-36.0); Mean Corpuscular Hemoglobin 31.5 pg (27.0-33.0); Mean Corpuscular Volume 96.7 fL (80.0-98.0); Mean Platelet Volume 10.8 fL (9.4-12.4); Platelet Count 138 X10*3/uL (160-400); Red Cell Distribution Width 12.9 % (11.0-16.0); White Blood Count 10.4 X10*3/uL (4.8-10.8)
[2024-09-23] MEDS: Doxycycline Monohydrate 100 MG CAPSULE PO ×2 (10:56→21:17)
[2024-09-23] MEDS: Insulin Glargine,Hum.rec.anlog 100 UNIT/ML 10 ML VIAL 40 UNIT SUBCUT ×2 (10:57→21:18)
[2024-09-23 11:13] LABS: Glucose, Whole Blood 430 mg/dL (60-115)
--- NOTE | 2024-09-23 11:27 | HO.PM.IMPN ---
Subjective Subjective Date of Service: 09/23/24 Interval History: f/u on shortness of breath, hypoventilation, uncontrolled diabetes interval history: still with some sob, blood sugars are still high but better Physical Exam Vital Signs: Vital Signs: Last Vital Signs Temp 97.4 F 09/23/24 07:50 Pulse 103 H 09/23/24 11:03 Resp 18 09/23/24 11:03 BP 140/94 H 09/23/24 07:50 Pulse Ox 98 09/23/24 07:50 O2 Del Method Oxymask 09/23/24 07:50 O2 Flow Rate 2 09/23/24 07:50 BMI result Body Mass Index 66.6 General: AO X 3, no acute distress Resp: CTA bilateral CVS: S1,S2,RRR GI: +BS, NT, no distention Skin: No rash Neuro: motor grossly intact Psych: appropriate affect Objective Data Active Medications Acetaminophen (Acetaminophen 325 Mg Tablet) 650 mg PO Q6H PRN PRN Reason: Pain, Mild (Pain Scale 1-3), fever or headache Last Admin: 09/22/24 23:55 Dose: 650 mg Documented By: DEMI Calcium Carbonate (Calcium Carbonate 750 Mg Tab.Chew) 750 mg PO Q4H PRN PRN Reason: Heartburn Doxycycline Monohydrate (Doxycycline Monohydrate 100 Mg Capsule) 100 mg PO Q12H [facility] Last Admin: 09/23/24 10:56 Dose: 100 mg Documented By: WILVER Enoxaparin Sodium (Enoxaparin Sodium 40 Mg/0.4 Ml Syringe) 40 mg SUBCUT Q24H [facility] Last Admin: 09/22/24 18:31 Dose: 40 mg Documented By: ANNALISA Fluticasone/Vilanterol (Fluticasone/Vilanterol 100/25 Blst.W.Dev) 1 puff INHALE DAILY [facility] Last Admin: 09/23/24 07:55 Dose: Not Given Documented By: KAMRAN Non-Admin Reason: IV Running Gabapentin (Gabapentin 300 Mg Capsule) 300 mg PO BID [facility] Last Admin: 09/23/24 08:05 Dose: 300 mg Documented By: WILVER Glucose (Glucose Gel 15 Gm Gel..Gram.) 15 gm PO Q15M PRN; Protocol PRN Reason: per Hypoglycemia Standing Ord. Dextrose (D10) 250 mls @ 750 mls/hr IV Q15M PRN; Protocol PRN Reason: per Hypoglycemia Standing Ord. Lactated Ringer's (Lr) 1,000 mls @ 125 mls/hr IVCONT .Q8H [facility] Last Admin: 09/23/24 10:57 Dose: 125 mls/hr Documented By: WILVER Insulin Glargine (Insulin Glargine,Hum.Rec.Anlog 100 Unit/Ml 10 Ml Vial) 30 unit SUBCUT BEDTIME [facility] Last Admin: 09/22/24 21:57 Dose: 30 unit Documented By: DEMI Insulin Glargine (Insulin Glargine,Hum.Rec.Anlog 100 Unit/Ml 10 Ml Vial) 40 unit SUBCUT DAILY [facility] Last Admin: 09/23/24 10:57 Dose: 40 unit Documented By: WILVER Insulin Human Lispro (Insulin Lispro 100 Unit/Ml 3 Ml Vial) 0 unit SUBCUT QIDACHS [facility]; Protocol Last Admin: 09/23/24 11:25 Dose: 14 unit Documented By: WILVER Comments: Per Dr. Murrell Insulin Human Lispro (Insulin Lispro 100 Unit/Ml 3 Ml Vial) 5 unit SUBCUT QIDACHS [facility] Last Admin: 09/23/24 11:26 Dose: 5 unit Documented By: WILVER Lamotrigine (Lamotrigine 25 Mg Tablet) 25 mg PO BEDTIME [facility] Last Admin: 09/22/24 21:57 Dose: 25 mg Documented By: DEMI Levalbuterol HCl (Levalbuterol Hcl 1.25 Mg/3 Ml Vial.Neb) 1.25 mg INHALE Q2H PRN PRN Reason: Shortness of Breath/Wheezing Last Admin: 09/22/24 22:20 Dose: 1.25 mg Documented By: CONCEPCION Levalbuterol HCl (Levalbuterol Hcl 1.25 Mg/3 Ml Vial.Neb) 1.25 mg INHALE RQ4H WHILE AWAKE [facility] Last Admin: 09/23/24 11:01 Dose: 1.25 mg Documented By: KAMRAN Magnesium Hydroxide (Milk Of Magnesia 30 Ml Oral.Susp) 30 ml PO DAILY PRN PRN Reason: Constipation Melatonin (Melatonin 3 Mg Tablet) 6 mg PO BEDTIME PRN PRN Reason: Insomnia Non-Formulary Medication (Dulaglutide [Trulicity]) 4.5 mg SUBCUT ARREGUIN [facility] Prazosin HCl (Prazosin Hcl 1 Mg Capsule) 2 mg PO BEDTIME [facility]; Protocol Last Admin: 09/22/24 21:57 Dose: 2 mg Documented By: DEMI Quetiapine Fumarate (Quetiapine Fumarate 25 Mg Tablet) 25 mg PO BEDTIME [facility] Last Admin: 09/22/24 21:57 Dose: 25 mg Documented By: DEMI Quetiapine Fumarate (Quetiapine Fumarate 25 Mg Tablet) 25 mg PO DAILY PRN PRN Reason: Agitation Sodium Chloride (0.9 % Sodium Chloride Flush 3 Ml Syringe) 3 ml IVFLUSH QSHIFT [facility] Last Admin: 09/23/24 09:57 Dose: 3 ml Documented By: ANNALISA Labs 09/23/24 10:07 09/23/24 05:48 Labs: Laboratory Results - last 24 hr 09/22/24 09/22/24 09/22/24 11:02 11:36 12:06 MCV MCH MCHC RDW Plt Count MPV Absolute Nucleated RBC Nucleated RBC % (auto) D-Dimer High Sensitivty < 150 Anion Gap Estim Creat Clear Calc Estimated GFR POC Glucose 544 H* Random Glucose Estimat Average Glucose Hemoglobin A1c % Lactic Acid F/U @ 2Hr 4.7 H* Lactic Acid F/U @ 4Hr Calcium 09/22/24 09/22/24 09/22/24 13:06 14:43 14:53 MCV MCH MCHC RDW Plt Count MPV Absolute Nucleated RBC Nucleated RBC % (auto) D-Dimer High Sensitivty Anion Gap Estim Creat Clear Calc Estimated GFR POC Glucose 421 H* 387 H* Random Glucose Estimat Average Glucose Hemoglobin A1c % Lactic Acid F/U @ 2Hr Lactic Acid F/U @ 4Hr 2.9 H* Calcium 09/22/24 09/22/24 09/22/24 16:16 16:19 20:37 MCV MCH MCHC RDW Plt Count MPV Absolute Nucleated RBC Nucleated RBC % (auto) D-Dimer High Sensitivty Anion Gap 18 Estim Creat Clear Calc 126.5 Estimated GFR > 60 POC Glucose 392 H* 404 H* Random Glucose 430 H* Estimat Average Glucose 338 Hemoglobin A1c % 13.4 H Lactic Acid F/U @ 2Hr Lactic Acid F/U @ 4Hr Calcium 9.5 09/23/24 09/23/24 09/23/24 05:48 07:43 10:07 MCV 96.7 MCH 31.5 MCHC 32.6 RDW 12.9 Plt Count 138 L MPV 10.8 Absolute Nucleated RBC 0.000 Nucleated RBC % (auto) 0.0 D-Dimer High Sensitivty Anion Gap 15 Estim Creat Clear Calc 148.2 Estimated GFR > 60 POC Glucose 348 H Random Glucose 333 H Estimat Average Glucose Hemoglobin A1c % Lactic Acid F/U @ 2Hr Lactic Acid F/U @ 4Hr Calcium 9.3 09/23/24 10:55 MCV MCH MCHC RDW Plt Count MPV Absolute Nucleated RBC Nucleated RBC % (auto) D-Dimer High Sensitivty Anion Gap Estim Creat Clear Calc Estimated GFR POC Glucose 430 H* Random Glucose Estimat Average Glucose Hemoglobin A1c % Lactic Acid F/U @ 2Hr Lactic Acid F/U @ 4Hr Calcium Microbiology Microbiology Results: Microbiology 09/22/24 09:04 Blood Culture - Preliminary Blood - Venous No growth after 24 hours. 09/22/24 09:04 Blood Culture - Preliminary Blood - Venous No growth after 24 hours. Assessment and Plan (1) CHF (congestive heart failure): Status: Acute Plan A 42-year-old male with morbid obesity, uncontrolled diabetes, and bipolar disorder presented to the hospital with complaints of shortness of breath, and found to have hyperglycemia with mild acidosis, acute lactic acidosis Shortness of breath--likely multifactorial including obesity hypoventilation syndrome, hyperglycemia, possible asthma exacerbation -inhalers, stop IVF, trial of Lasix. reconsider steroid. consider pulmonology consult HypERglycemia with mild acidosis--d/t non compliance with meds, acidosis resolved. -sugar is much better following IVF Diabetes, uncontrolled with hyperglycemia and non-complicance, hgb A1C = 13 -he has not been taking meds in at aleast a week -continue Lantus 40 in the morning and at night, Pre-meal insulin and sliding scale Acute lactic acidosis --not due to sepsis, resolving, not need to repeat Mild metabolic acidosis d/t early DKA--resolved with IVF LEA--pre-renal d/t volume depletion from hyperglycemia and glucosuria, resolved Suspected MARTIN--CPAP at night Morbid obesity--weight loss advised Bipolar--resumed home meds, Mild hyPonatremia likely d/t Pseudohyponatremia from hyperlycemia DVT Prophylaxis: lovenox Admission for management for hyperglycemia with acidosis, shortness of breath Full code Quality Stroke Does the patient have a stroke diagnosis?: No VTE Prior VTE?: No VTE Risk Level:: Medical - moderate - high VTE Device Contraindication: Treatment Not Indicated VTE Drug Contraindication: N/A - Med Ordered
[2024-09-23] MEDS: Furosemide 40 MG/4 ML VIAL IVPUSH ×2 (11:32→22:40)
--- NOTE | 2024-09-23 13:34 | MHC.CM.PN ---
PT REPORTS HE LIVES ALONE HE HAS DAILY [employer] HE SAYS HIS SISTER IS HIS HCP, COPY REQUESTED PCP: JUDE ROSAS IMM DELIVERED DCP: HOME RESUME [employer] PT WILL NEED LYFT TRANSPORT PT ALSO ASKING FOR A NEW PT APPT WITH [facility], TASK SENT TO CM OFFICE
[2024-09-23 15:20] LABS: Glucose, Whole Blood 321 mg/dL (60-115)
[2024-09-23] MEDS: Enoxaparin Sodium 40 MG/0.4 ML SYRINGE SUBCUT (16:31)
--- NOTE | 2024-09-23 20:31 | PM.EVENT ---
Event Note Date of Service: 09/23/24 Event Note: Pt with PND, orthopnea, CXR suggestive pul edema, however normal BNP. Given IV Lasix with massive urine output per his report and breathing better. Will obain echo, he has no wheezing and therefore don' think role for steroid at this time. Time Spent With Patient Time: Total time managing care of this patient today ____ minutes.
[2024-09-23 20:52] LABS: Glucose, Whole Blood 327 mg/dL (60-115)
[2024-09-23] MEDS: Prazosin HCL 1 MG CAPSULE 2 MG PO (21:17)
[2024-09-23] MEDS: lamoTRIgine 25 MG TABLET PO (21:17)
[2024-09-23] MEDS: QUEtiapine Fumarate 25 MG TABLET PO (21:17)
[2024-09-23] MEDS: Nystatin Powder 15 GM BOTTLE 1 APPL TOPICAL (21:17)
[2024-09-24] VITALS (11 sets, daily range): BP systolic 106–135; BP diastolic 52–86; PULSE 103–113; RESP 18–22; TEMP 36–36.8; O2SAT 90–98
[2024-09-24] MEDS: levalbuterol HCL 1.25 MG/3 ML VIAL.NEB INHALE ×5 (05:12→21:08)
[2024-09-24 06:56] LABS: Anion Gap 13 (12-20); Blood Urea Nitrogen 17 mg/dL (9-16); Carbon Dioxide 31 mmol/L (22-29); Chloride 97 mmol/L (96-108); Creatinine Clr Calc Pharmacy 145.4; Estimated Glomerular Filt Rate > 60; Potassium 4.1 mmol/L (3.3-5.1); Sodium 137 mmol/L (135-145)
--- NOTE | 2024-09-24 07:00 | CA_ITS ---
Transthoracic Echocardiogram Patient (Last, First, Middle): Fazal Carlson, Gender: Male Date of : 1980 Age: 43 Procedure Date: 09/24/2024 Procedure Type: Transthoracic Echocardiogram Location: [facility] [place] Height: 167.64 cm Weight: 186.88 kg BSA: 2.72 m2 Heart Rate: 108 bpm BP: 135 / 86 mmHg Senior Technical Support Engineer: CHON Referring MD: Jovany Murrell MD Symptoms: heart failure Study Quality: Fair ECG Rhythm: Tachycardia Conclusions: - The left ventricular systolic function is low normal. The visually estimated ejection fraction is between 50-55%. - No obvious valvular pathology seen on this study. Findings Procedure Information Contrast agent, definity, is being given per protocol without apparent complications. Left Ventricle Normal left ventricular cavity size. There is mildly increased left ventricular wall thickness. The left ventricular systolic function is low normal. The visually estimated ejection fraction is between 50-55%. There is no evidence of regional wall motion abnormalities. Diastolic function is normal for age. Right Ventricle Normal right ventricular cavity size and systolic function. Atria Both atria are normal in size. Aortic Valve The aortic valve was not well visualized. There is no aortic valve stenosis. There is no aortic valve regurgitation. Mitral Valve The mitral valve appears normal. There is no mitral valve regurgitation. There is no mitral valve stenosis. Pulmonic Valve The pulmonic valve is likely normal. Tricuspid Valve There is trace tricuspid valve regurgitation. Tricuspid regurgitation envelope is inadequate for calculation of right ventricular systolic pressure. Great Vessels The asc aorta is normal in size. Venous The inferior vena cava was not well visualized. Pericardium/Pleural There is no evidence of pericardial effusion. Prior Study Comparison No prior study available for comparison. Recommendations, Care & Conclusions No obvious valvular pathology seen on this study. Measurements 2D Linear Measurements IVSd: 1.24 0.6-0.9/0.6-1.0 cm LVIDd: 4.63 3.9-5.3/4.2-5.9 cm LVIDd Index: 1.70 2.4-3.2/2.2-3.1 cm/m2 LVIDs: 2.96 2.0-3.6 cm LVPWd: 1.14 0.7-1.1 cm LA Diam: 3.10 2.7-3.8/3.0-4.0 cm LAIDs Index: 1.14 1.5-2.3 cm/m2 LV Mass: 255.03 67-162/88-224 g LV Mass Index: 93.76 43-95/49-115 g/m2 LVOT Diam: 2.00 3.0+(-)1.3 cm 2D Systolic Function EF 4C: 53.70 >55% EF 2C: 57.40 >55% EF BiP: 55.40 >55% Mitral Valve MV Pk E: 0.61 MV PK A: 0.88 MV Decel Time: 108.00 E/A: 0.70 E'Lateral: 8.70 E'Medial: 6.74 E/E' Med: 9.10 E/E' Lat: 7.00 PHT: 32.00 MVA PHT: 6.88 Decel [place]: 5.65 Aortic Valve AoV Pk Woody: 1.25 AoV Mn Woody: 0.90 AoV VTI: 0.18 AoV Pk Grad: 6.00 Aov Mn Grad: 4.00 ROBY Cont.VTI: 3.11 LVOT LVOT Pk Woody: 1.07 LVOT Mn Woody: 0.69 LVOT VTI: 0.18 LVOT Pk Grad: 5.00 LVOT Mn Grad: 2.00 LVOT Diam: 2.00 LVOT Area: 3.14 Diastolic Function MV Pk E: 0.61 MV Pk A: 0.88 E/A: 0.70 E'Medial: 6.74 E/E' Med: 9.10 E' Laterial: 8.70 E/E' Lat: 7.00 Right Ventricle TAPSE (mm): 23.10 TVS' Woody: 16.20 Great Vessels Aorta Sinus of Valsalva: 3.35 2.0-3.5 cm Ao Asc: 3.30 2.1-3.4 cm Updated in Other Vendor System with Status of Final Jaxon Infante MD electronically signed on 09/24/2024 10:48:34 AM with status of Final
[2024-09-24 07:18] LABS: Glucose Random 357 mg/dL (60-115)
[2024-09-24 07:36] LABS: Glucose, Whole Blood 380 mg/dL (60-115)
[2024-09-24] MEDS: 0.9 % Sodium Chloride Flush 3 ML SYRINGE IVFLUSH ×2 (08:09→15:16)
[2024-09-24] MEDS: Furosemide 40 MG/4 ML VIAL IVPUSH (08:09)
[2024-09-24] MEDS: Insulin Lispro 100 UNIT/ML 3 ML VIAL SUBCUT ×3 (08:11→16:42)
[2024-09-24] MEDS: Gabapentin 300 MG CAPSULE PO ×2 (08:11→21:06)
[2024-09-24] MEDS: Doxycycline Monohydrate 100 MG CAPSULE PO ×2 (08:13→21:06)
[2024-09-24] MEDS: Nystatin Powder 15 GM BOTTLE 1 APPL TOPICAL ×2 (08:19→21:08)
--- NOTE | 2024-09-24 09:18 | PM.CNCAR ---
History of Present Illness History of Present Illness Date of Service: 09/24/24 Chief complaint: Shortness of breath, Hyperglycemia Narrative: This is a cardiology consultation regarding shortness of breath. Patient has morbid obesity and it seems he also has uncontrolled diabetes. He denies any prior cardiac history including coronary disease or myocardial infarction or cardiomyopathy or any other cardiac concerns. He mainly presents for shortness of breath. Initial blood sugar was at 584 mg/dL. And chest x-ray raised a question of possible pulmonary edema. However, cardiac BNP was only 15 but that could be falsely low in obesity. He was treated for possible COPD. Patient states he has a history of asthma but he has never had any issues like this before. In fact, he states he was trying to start exercising and did some jogging few days back and that was apparently okay but not clear how much she actually exercise. He denies any clear-cut symptoms like angina. Because of shortness of breath and various risk factors, we have been asked to see him. Review of Systems Review of Systems: Yes all other systems are reviewed and are negative Constitutional: Constitutional: Reports as per HPI and Reports no additional constitutional complaints Eyes: Eyes: Reports as per HPI and Denies no additional eye complaints ENT: Denies system reviewed and no additional complaints, except as documented and Reports as per HPI Cardiovascular: Cardiovascular: Reports as per HPI, Reports no additional cardiovascular complaints, Denies acrocyanosis, Denies cool extremities, Denies chest pain, Denies leg edema, Denies lightheadedness, Denies palpitations and Reports dyspnea Respiratory: Respiratory: Reports as per HPI, Denies no additional respiratory complaints and Reports dyspnea Gastrointestinal: Gastrointestinal: Reports as per HPI and Denies no additional gastrointestinal complaints Genitourinary: Genitourinary: Reports no additional male genitourinary complaints and Reports as per HPI Musculoskeletal: Musculoskeletal: Reports no additional musculoskeletal complaints and Reports as per HPI Integumentary/Breasts: Skin/Breast: Reports system reviewed and no additional complaints, except as docu Neurologic: Reports system reviewed and no additional complaints, except as documented and Reports as per HPI Psychiatric: Psychiatric: Reports no additional psychiatric complaints and Reports as per HPI Endocrine: Endocrine: Reports no additional endocrine complaints, Reports as per HPI and Denies palpitations Hematologic/Lymphatic: Hematologic/Lymphatic: Reports no additional hematologic/lymphatic complaints and Reports as per HPI Allergic/Immunologic: Allergic/Immunologic: Reports no additional allergic/immunologic complaints and Reports as per [facility] Past Medical History Medical History (Updated 09/24/24 @ 09:24 by Jaxon Infante MD) Obstructive sleep apnea Morbid obesity Diabetes mellitus Family History Family History (Updated 09/24/24 @ 09:22 by Jaxon Infante MD) Father Prostate cancer Mother Sarcoidosis Social History Social History (Updated 09/24/24 @ 09:22 by Jaxon Infante MD) Household Members: None [facility]: [facility] Do you presently have visiting nurse or other home services: No Patient Tobacco Use Status: Current someday Tobacco user Tobacco use type: Cigarette e-Cigarette/Vaping Use: Never Used Second Hand Smoke Exposure: Yes Substance Use Type: Crack/Cocaine service: No Meds Allergies Allergy/AdvReac Type Severity Reaction Status Date / Time No Known Allergies Allergy Verified 09/22/24 07:21 Active Medications: Current Medications Acetaminophen (Acetaminophen 325 Mg Tablet) 650 mg PO Q6H PRN PRN Reason: Pain, Mild (Pain Scale 1-3), fever or headache Last Admin: 09/22/24 23:55 Dose: 650 mg Calcium Carbonate (Calcium Carbonate 750 Mg Tab.Chew) 750 mg PO Q4H PRN PRN Reason: Heartburn Doxycycline Monohydrate (Doxycycline Monohydrate 100 Mg Capsule) 100 mg PO Q12H [facility] Last Admin: 09/24/24 08:13 Dose: 100 mg Enoxaparin Sodium (Enoxaparin Sodium 40 Mg/0.4 Ml Syringe) 40 mg SUBCUT Q24H [facility] Last Admin: 09/23/24 16:31 Dose: 40 mg Fluticasone/Vilanterol (Fluticasone/Vilanterol 100/25 Blst.W.Dev) 1 puff INHALE DAILY [facility] Last Admin: 09/23/24 07:55 Dose: Not Given Furosemide (Furosemide 40 Mg/4 Ml Vial) 40 mg IVPUSH BID [facility]; Protocol Last Admin: 09/24/24 08:09 Dose: 40 mg Gabapentin (Gabapentin 300 Mg Capsule) 300 mg PO BID [facility] Last Admin: 09/24/24 08:11 Dose: 300 mg Glucose (Glucose Gel 15 Gm Gel..Gram.) 15 gm PO Q15M PRN; Protocol PRN Reason: per Hypoglycemia Standing Ord. Dextrose (D10) 250 mls @ 750 mls/hr IV Q15M PRN; Protocol PRN Reason: per Hypoglycemia Standing Ord. Insulin Glargine (Insulin Glargine,Hum.Rec.Anlog 100 Unit/Ml 10 Ml Vial) 50 unit SUBCUT BEDTIME [facility] Insulin Glargine (Insulin Glargine,Hum.Rec.Anlog 100 Unit/Ml 10 Ml Vial) 50 unit SUBCUT DAILY [facility] Insulin Human Lispro (Insulin Lispro 100 Unit/Ml 3 Ml Vial) 0 unit SUBCUT QIDACHS [facility]; Protocol Last Admin: 09/24/24 08:11 Dose: 14 unit Insulin Human Lispro (Insulin Lispro 100 Unit/Ml 3 Ml Vial) 8 unit SUBCUT QIDACHS [facility] Lamotrigine (Lamotrigine 25 Mg Tablet) 25 mg PO BEDTIME [facility] Last Admin: 09/23/24 21:17 Dose: 25 mg Levalbuterol HCl (Levalbuterol Hcl 1.25 Mg/3 Ml Vial.Neb) 1.25 mg INHALE Q2H PRN PRN Reason: Shortness of Breath/Wheezing Last Admin: 09/24/24 05:12 Dose: 1.25 mg Levalbuterol HCl (Levalbuterol Hcl 1.25 Mg/3 Ml Vial.Neb) 1.25 mg INHALE RQ4H WHILE AWAKE [facility] Last Admin: 09/24/24 08:09 Dose: 1.25 mg Magnesium Hydroxide (Milk Of Magnesia 30 Ml Oral.Susp) 30 ml PO DAILY PRN PRN Reason: Constipation Melatonin (Melatonin 3 Mg Tablet) 6 mg PO BEDTIME PRN PRN Reason: Insomnia Non-Formulary Medication (Dulaglutide [Trulicity]) 4.5 mg SUBCUT ARREGUIN [facility]FT[facility] Nystatin (Nystatin Powder 15 Gm Bottle) 1 appl TOPICAL BID [facility]; Protocol Last Admin: 09/24/24 08:19 Dose: 1 appl Prazosin HCl (Prazosin Hcl 1 Mg Capsule) 2 mg PO BEDTIME [facility]; Protocol Last Admin: 09/23/24 21:17 Dose: 2 mg Quetiapine Fumarate (Quetiapine Fumarate 25 Mg Tablet) 25 mg PO BEDTIME [facility] Last Admin: 09/23/24 21:17 Dose: 25 mg Quetiapine Fumarate (Quetiapine Fumarate 25 Mg Tablet) 25 mg PO DAILY PRN PRN Reason: Agitation Sodium Chloride (0.9 % Sodium Chloride Flush 3 Ml Syringe) 3 ml IVFLUSH QSHIFT [facility] Last Admin: 09/24/24 08:09 Dose: 3 ml Home Medications ?Medication ?Instructions ?Recorded ?Confirmed ?Last Taken ?Type dulaglutide 4.5 mg/0.5 mL 4.5 mg subcut ARREGUIN 09/22/24 09/22/24 09/16/24 History subcutaneous pen injector (Trulicity) fluticasone propionate 115 2 puff inhalation BID Shortness Of 09/22/24 09/22/24 Unknown History mcg-salmeterol 21 mcg/actuation Breath Or Wheezing HFA inhaler (Advair HFA) gabapentin 300 mg capsule 300 mg PO BID 09/22/24 09/22/24 09/20/24 History ibuprofen 800 mg tablet 800 mg PO Q8H PRN pain 09/22/24 09/22/24 Unknown History insulin regular hum U-500 conc 500 75 unit subcut BID@1200,1700 09/22/24 09/22/24 09/17/24 History unit/mL(3 mL) subcut pen (Humulin R U-500 (Conc) Insulin Kwikpen) insulin regular hum U-500 conc 500 100 unit subcut DAILY@0800 09/22/24 09/22/24 09/17/24 History unit/mL(3 mL) subcut pen (Humulin R U-500 (Conc) Insulin Kwikpen) lamotrigine 25 mg tablet 25 mg PO BEDTIME 09/22/24 09/22/24 09/20/24 History metformin 500 mg tablet,extended 1,000 mg PO BID 09/22/24 09/22/24 09/15/24 History release 24 hr prazosin 2 mg capsule 2 mg PO BEDTIME 09/22/24 09/22/24 09/20/24 History quetiapine 25 mg tablet 25 mg PO BEDTIME 09/22/24 09/22/24 09/20/24 History quetiapine 25 mg tablet 25 mg PO DAILY PRN Agitation 09/22/24 09/22/24 Unknown History Physical Exam Vital Signs: Vital Signs: Last Vital Signs Temp 97.4 F 09/24/24 07:56 Pulse 105 H 09/24/24 07:56 Resp 20 09/24/24 07:56 BP 108/55 L 09/24/24 08:09 Pulse Ox 94 09/24/24 07:56 O2 Del Method Oxymask 09/24/24 07:56 O2 Flow Rate 1 09/24/24 07:56 BMI result Body Mass Index 66.6 Const: General: comfortable and no acute distress Orientation/consciousness: patient oriented x3 HEENT: Other: Unremarkable Head: Yes normal to inspection Neck: Neck: Yes normal visual inspection Chest: Chest palpation & inspection: normal inspection of the chest Resp: Auscultation: clear to auscultation bilaterally Cardio: Palpation: normal PMI Heart sounds: S1 normal heart sound present, S2 normal heart sound present, no gallops, no murmurs and no rubs GI: Palpation (GI): Soft to palpation Back/Spine/Pelvis: Other: unremarkable Skin: General skin exam: no rashes or lesions noted Neuro: General: patient oriented x3 Extrem: General: Yes normal to inspection Psych: Mental Status: mental status grossly normal Objective Labs and Meds 09/23/24 10:07 09/24/24 05:37 Lab results: Laboratory Results - last 24 hr 09/23/24 09/23/24 09/23/24 10:07 10:55 15:15 WBC 10.4 RBC 3.90 L Hgb 12.3 L Hct 37.7 L MCV 96.7 MCH 31.5 MCHC 32.6 RDW 12.9 Plt Count 138 L MPV 10.8 Absolute Nucleated RBC 0.000 Nucleated RBC % (auto) 0.0 Hold Purple Top Sodium Potassium Chloride Carbon Dioxide Anion Gap BUN Creatinine Estim Creat Clear Calc Estimated GFR POC Glucose 430 H* 321 H Random Glucose Calcium 09/23/24 09/24/24 09/24/24 20:38 05:37 07:32 WBC RBC Hgb Hct MCV MCH MCHC RDW Plt Count MPV Absolute Nucleated RBC Nucleated RBC % (auto) Hold Purple Top SEE NOTE Sodium 137 Potassium 4.1 Chloride 97 Carbon Dioxide 31 H Anion Gap 13 BUN 17 H Creatinine 1.07 Estim Creat Clear Calc 145.4 Estimated GFR > 60 POC Glucose 327 H 380 H* Random Glucose 357 H* Calcium 9.0 ECG Interpretation: EKG with sinus tachycardia at 113/Min. Assessment and Plan (1) Acute respiratory failure: Status: Acute (2) Asthma with exacerbation: Status: Acute (3) Uncontrolled diabetes mellitus with hyperglycemia: Status: Acute Plan Cardiac BNP as well as high sensitivity troponins are unremarkable. Overall, symptoms possibly respiratory in nature but cannot exclude underlying cardiac issues as he has so many risk factors. We can start with an echocardiogram for cardiac function assessment. Empiric diuretics but he does not look overtly volume overloaded. Ischemia assessment at some point, to be decided. His weight he will be the main issue to decide what to do. Discussed with Dr. Murrell. Procedures Date of Service Date of Service: 09/24/24
[2024-09-24] MEDS: Insulin Glargine,Hum.rec.anlog 100 UNIT/ML 10 ML VIAL 50 UNIT SUBCUT (10:31)
[2024-09-24] MEDS: Acetaminophen 325 MG TABLET 650 MG PO ×2 (10:42→16:44)
[2024-09-24 11:35] LABS: Glucose, Whole Blood 419 mg/dL (60-115)
[2024-09-24] MEDS: Insulin Lispro 100 UNIT/ML 3 ML VIAL 8 UNIT SUBCUT ×2 (11:48→16:42)
--- NOTE | 2024-09-24 13:13 | P.PNIM_ITS ---
Subjective Subjective Date of Service: 09/24/24 Interval History: f/u on shortness of breath, hypoventilation, heart failure,uncontrolled diabetes interval history: Breathing is better and was able to sleep better last night, and he is diuresing well, unfortunately glucose remains very high Physical Exam 2 Vital Signs: Vital Signs: Last Vital Signs Temp 97.4 F 09/24/24 11:28 Pulse 106 H 09/24/24 12:14 Resp 19 09/24/24 12:14 BP 119/81 09/24/24 11:28 Pulse Ox 98 09/24/24 11:28 O2 Del Method Oxymask 09/24/24 11:28 O2 Flow Rate 3 09/24/24 11:28 BMI result Body Mass Index 66.6 General: AO X 3, no acute distress, morobid obesity Resp: CTA bilateral CVS: S1,S2,RRR GI: +BS, NT, no distention Skin: No rash Neuro: motor grossly intact Psych: appropriate affect Objective Data Active Medications Acetaminophen (Acetaminophen 325 Mg Tablet) 650 mg PO Q6H PRN PRN Reason: Pain, Mild (Pain Scale 1-3), fever or headache Last Admin: 09/24/24 10:42 Dose: 650 mg Documented By: TRAVON Calcium Carbonate (Calcium Carbonate 750 Mg Tab.Chew) 750 mg PO Q4H PRN PRN Reason: Heartburn Doxycycline Monohydrate (Doxycycline Monohydrate 100 Mg Capsule) 100 mg PO Q12H [facility] Last Admin: 09/24/24 08:13 Dose: 100 mg Documented By: TRAVON Enoxaparin Sodium (Enoxaparin Sodium 40 Mg/0.4 Ml Syringe) 40 mg SUBCUT Q24H [facility] Last Admin: 09/23/24 16:31 Dose: 40 mg Documented By: WILVER Fluticasone/Vilanterol (Fluticasone/Vilanterol 100/25 Blst.W.Dev) 1 puff INHALE DAILY [facility] Last Admin: 09/24/24 12:14 Dose: Not Given Documented By: PAULO Non-Admin Reason: Med Not Available Furosemide (Furosemide 40 Mg/4 Ml Vial) 40 mg IVPUSH BID [facility]; Protocol Last Admin: 09/24/24 08:09 Dose: 40 mg Documented By: TRAVON Gabapentin (Gabapentin 300 Mg Capsule) 300 mg PO BID [facility] Last Admin: 09/24/24 08:11 Dose: 300 mg Documented By: TRAVON Glucose (Glucose Gel 15 Gm Gel..Gram.) 15 gm PO Q15M PRN; Protocol PRN Reason: per Hypoglycemia Standing Ord. Dextrose (D10) 250 mls @ 750 mls/hr IV Q15M PRN; Protocol PRN Reason: per Hypoglycemia Standing Ord. Insulin Glargine (Insulin Glargine,Hum.Rec.Anlog 100 Unit/Ml 10 Ml Vial) 50 unit SUBCUT BEDTIME [facility] Insulin Glargine (Insulin Glargine,Hum.Rec.Anlog 100 Unit/Ml 10 Ml Vial) 50 unit SUBCUT DAILY [facility] Last Admin: 09/24/24 10:31 Dose: 50 unit Documented By: TRAVON Insulin Human Lispro (Insulin Lispro 100 Unit/Ml 3 Ml Vial) 0 unit SUBCUT QIDACHS [facility]; Protocol Last Admin: 09/24/24 11:48 Dose: 14 unit Documented By: TRAVON Insulin Human Lispro (Insulin Lispro 100 Unit/Ml 3 Ml Vial) 8 unit SUBCUT QIDACHS [facility] Last Admin: 09/24/24 11:48 Dose: 8 unit Documented By: TRAVON Lamotrigine (Lamotrigine 25 Mg Tablet) 25 mg PO BEDTIME [facility] Last Admin: 09/23/24 21:17 Dose: 25 mg Documented By: WILVER Levalbuterol HCl (Levalbuterol Hcl 1.25 Mg/3 Ml Vial.Neb) 1.25 mg INHALE Q2H PRN PRN Reason: Shortness of Breath/Wheezing Last Admin: 09/24/24 05:12 Dose: 1.25 mg Documented By: CONCEPCION Levalbuterol HCl (Levalbuterol Hcl 1.25 Mg/3 Ml Vial.Neb) 1.25 mg INHALE RQ4H WHILE AWAKE [facility] Last Admin: 09/24/24 12:10 Dose: 1.25 mg Documented By: PAULO Magnesium Hydroxide (Milk Of Magnesia 30 Ml Oral.Susp) 30 ml PO DAILY PRN PRN Reason: Constipation Melatonin (Melatonin 3 Mg Tablet) 6 mg PO BEDTIME PRN PRN Reason: Insomnia Non-Formulary Medication (Dulaglutide [Trulicity]) 4.5 mg SUBCUT ARREGUIN [facility] Nystatin (Nystatin Powder 15 Gm Bottle) 1 appl TOPICAL BID [facility]; Protocol Last Admin: 09/24/24 08:19 Dose: 1 appl Documented By: TRAVON Prazosin HCl (Prazosin Hcl 1 Mg Capsule) 2 mg PO BEDTIME [facility]; Protocol Last Admin: 09/23/24 21:17 Dose: 2 mg Documented By: WILVER Quetiapine Fumarate (Quetiapine Fumarate 25 Mg Tablet) 25 mg PO BEDTIME [facility] Last Admin: 09/23/24 21:17 Dose: 25 mg Documented By: WILVER Quetiapine Fumarate (Quetiapine Fumarate 25 Mg Tablet) 25 mg PO DAILY PRN PRN Reason: Agitation Sodium Chloride (0.9 % Sodium Chloride Flush 3 Ml Syringe) 3 ml IVFLUSH QSHIFT [facility] Last Admin: 09/24/24 08:09 Dose: 3 ml Documented By: TRAVON Labs 09/23/24 10:07 09/24/24 05:37 Labs: Laboratory Results - last 24 hr 09/23/24 09/23/24 09/24/24 15:15 20:38 05:37 Hold Purple Top SEE NOTE Anion Gap 13 Estim Creat Clear Calc 145.4 Estimated GFR > 60 POC Glucose 321 H 327 H Random Glucose 357 H* Calcium 9.0 09/24/24 09/24/24 07:32 11:26 Hold Purple Top Anion Gap Estim Creat Clear Calc Estimated GFR POC Glucose 380 H* 419 H* Random Glucose Calcium Microbiology Microbiology Results: Microbiology 09/22/24 09:04 Blood Culture - Preliminary Blood - Venous No growth after 48 hours. 09/22/24 09:04 Blood Culture - Preliminary Blood - Venous No growth after 48 hours. Assessment and Plan (1) CHF (congestive heart failure): Status: Acute Plan A 42-year-old male with morbid obesity, uncontrolled diabetes, and bipolar disorder presented to the hospital with complaints of shortness of breath, and found to have hyperglycemia with mild acidosis, acute lactic acidosis Shortness of breath--likely multifactorial including obesity hypoventilation syndrome, hyperglycemia, possible asthma exacerbation and bronchitis -inhalers, doxy for bronchitis, lasix for heart failures Heart failure, uspecified. -get echo -cardiology consult -IV lasix and track I/O metabolic acidosis, early dka --resolved. Diabetes, uncontrolled with hyperglycemia and non-complicance, hgb A1C = 13 -he has not been taking meds in at aleast a week -Lantus Lantus adjusted to 50 bid, SSI, and pre-meal, add jardiance 10 mg daily. Acute lactic acidosis --not due to sepsis, trended bryant LEA--pre-renal d/t volume depletion from hyperglycemia and glucosuria, resolved with ivf Suspected MARTIN--CPAP at night Morbid obesity--weight loss advised Bipolar--continue home meds, resolved. Mild hyPonatremia likely d/t Pseudohyponatremia from hyperlycemia DVT Prophylaxis: lovenox Admission for management for hyperglycemia with acidosis, shortness of breath Full code Quality Stroke Does the patient have a stroke diagnosis?: No VTE Prior VTE?: No VTE Risk Level:: Medical - moderate - high VTE Device Contraindication: Treatment Not Indicated VTE Drug Contraindication: N/A - Med Ordered
[2024-09-24] MEDS: Empagliflozin 10 MG TABLET PO (15:16)
[2024-09-24 16:09] LABS: Glucose, Whole Blood 271 mg/dL (60-115)
[2024-09-24] MEDS: Enoxaparin Sodium 40 MG/0.4 ML SYRINGE SUBCUT (16:43)
[2024-09-24 19:51] LABS: Glucose, Whole Blood 182 mg/dL (60-115)
[2024-09-24 20:54] LABS: Glucose, Whole Blood 151 mg/dL (60-115)
[2024-09-24] MEDS: QUEtiapine Fumarate 25 MG TABLET PO (21:06)
[2024-09-24] MEDS: lamoTRIgine 25 MG TABLET PO (21:06)
[2024-09-24 23:40] LABS: Glucose, Whole Blood 169 mg/dL (60-115)
[2024-09-25] VITALS (13 sets, daily range): BP systolic 111–136; BP diastolic 65–89; PULSE 88–113; RESP 16–22; TEMP 35.8–37.3; O2SAT 90–97
[2024-09-25] MEDS: 0.9 % Sodium Chloride Flush 3 ML SYRINGE IVFLUSH ×4 (00:04→22:24)
[2024-09-25 03:55] LABS: Glucose, Whole Blood 206 mg/dL (60-115)
[2024-09-25 08:14] LABS: Glucose, Whole Blood 191 mg/dL (60-115)
[2024-09-25] MEDS: levalbuterol HCL 1.25 MG/3 ML VIAL.NEB INHALE ×3 (08:46→21:05)
[2024-09-25] MEDS: Fluticasone/Vilanterol 100/25 BLST.W.DEV 1 PUFF INHALE (08:46)
[2024-09-25] MEDS: Doxycycline Monohydrate 100 MG CAPSULE PO ×2 (08:48→22:21)
[2024-09-25] MEDS: Empagliflozin 10 MG TABLET PO (08:48)
[2024-09-25] MEDS: Furosemide 40 MG/4 ML VIAL IVPUSH (08:48)
[2024-09-25] MEDS: Insulin Glargine,Hum.rec.anlog 100 UNIT/ML 10 ML VIAL 50 UNIT SUBCUT (08:49)
[2024-09-25] MEDS: Acetaminophen 325 MG TABLET 650 MG PO ×3 (08:49→22:57)
[2024-09-25] MEDS: Gabapentin 300 MG CAPSULE PO ×2 (08:49→22:21)
[2024-09-25] MEDS: Insulin Lispro 100 UNIT/ML 3 ML VIAL SUBCUT ×4 (08:50→20:41)
[2024-09-25] MEDS: Nystatin Powder 15 GM BOTTLE 1 APPL TOPICAL ×2 (08:59→22:23)
--- NOTE | 2024-09-25 10:13 | PM.PNCARD ---
Subjective Subjective Date of Service: 09/25/24 Interval history: He states that whenever he is breathing in, he feels as though throat his getting very tight. That sounds more of a respiratory description. He does not have any clear-cut angina. He states he is diuresing a lot with Lasix. Physical Exam Vital Signs: Last Vital Signs Temp 96.4 F L 09/25/24 08:00 Pulse 108 H 09/25/24 08:46 Resp 16 09/25/24 08:46 BP 124/81 09/25/24 08:48 Pulse Ox 90 L 09/25/24 08:00 O2 Del Method Room Air 09/25/24 08:00 O2 Flow Rate 2 09/25/24 00:00 BMI result Body Mass Index 66.6 Const General: comfortable and no acute distress Orientation/consciousness: patient oriented x3 HEENT Other: Unremarkable Head: Yes normal to inspection Neck Neck: Yes normal visual inspection Chest Chest palpation & inspection: normal inspection of the chest Resp Auscultation: clear to auscultation bilaterally Cardio Palpation: normal PMI Heart sounds: S1 normal heart sound present, S2 normal heart sound present, no gallops, no murmurs and no rubs GI Palpation (GI): Soft to palpation Back/Spine/Pelvis Other: unremarkable Skin General skin exam: no rashes or lesions noted Neuro General: patient oriented x3 Extrem General: Yes normal to inspection Psych Mental Status: mental status grossly normal Objective Labs and Meds 09/23/24 10:07 09/24/24 05:37 Lab results: Laboratory Results - last 24 hr 09/24/24 09/24/24 09/24/24 11:26 16:00 19:43 POC Glucose 419 H* 271 H 182 H 09/24/24 09/24/24 09/25/24 20:50 23:32 03:29 POC Glucose 151 H 169 H 206 H 09/25/24 08:07 POC Glucose 191 H Progress Note: A&P Assessment and plan (1) Acute respiratory failure: Status: Acute (2) Asthma with exacerbation: Status: Acute (3) Uncontrolled diabetes mellitus with hyperglycemia: Status: Acute Plan Cardiac BNP as well as high sensitivity troponins are unremarkable. Echocardiogram with LVEF of 50-55%. No significant valvular findings. Uncertain if the shortness of breath is cardiac or pulmonary but he describes that every time he takes a breath he feels his throat being tight which may indicate rather respiratory issue being primary. Any case, he is responding to diuretics but unclear if the data is accurate. Consider pulmonology input. Symptoms do not appear ischemic in nature but considering the risk factors, ischemic workup still can be considered as an outpatient. Time Spent With Patient Time: Total time managing care of this patient today ____ minutes. Progress Note: Quality Stroke Does the patient have a stroke diagnosis?: No Procedures Date of Service Date of Service: 09/25/24
[2024-09-25 10:40] LABS: Anion Gap 20 (12-20); Blood Urea Nitrogen 16 mg/dL (9-16); Carbon Dioxide 26 mmol/L (22-29); Chloride 96 mmol/L (96-108); Creatinine Clr Calc Pharmacy 163.8; Estimated Glomerular Filt Rate > 60; Glucose Random 260 mg/dL (60-115); Potassium 3.9 mmol/L (3.3-5.1); Sodium 138 mmol/L (135-145)
[2024-09-25 11:47] LABS: Glucose, Whole Blood 184 mg/dL (60-115)
[2024-09-25 16:11] LABS: Glucose, Whole Blood 203 mg/dL (60-115)
[2024-09-25] MEDS: Enoxaparin Sodium 40 MG/0.4 ML SYRINGE SUBCUT (17:01)
--- NOTE | 2024-09-25 17:23 | HO.PM.IMPN ---
Subjective Subjective Date of Service: 09/25/24 Interval History: sob Review of Systems sob somewhat improving no new c/o Physical Exam Vital Signs: Vital Signs: Last Vital Signs Temp 97.5 F 09/25/24 15:52 Pulse 100 09/25/24 15:52 Resp 20 09/25/24 15:52 BP 136/78 09/25/24 15:52 Pulse Ox 95 09/25/24 15:52 O2 Del Method Nasal Cannula 09/25/24 15:52 O2 Flow Rate 2 09/25/24 15:52 BMI result Body Mass Index 66.6 General: AO X 3, no acute distress, morobid obesity Resp: CTA bilateral CVS: S1,S2,RRR GI: +BS, NT, no distention Skin: No rash Neuro: motor grossly intact Psych: appropriate affect Objective Data Active Medications Acetaminophen (Acetaminophen 325 Mg Tablet) 650 mg PO Q6H PRN PRN Reason: Pain, Mild (Pain Scale 1-3), fever or headache Last Admin: 09/25/24 17:04 Dose: 650 mg Documented By: TRAVON Calcium Carbonate (Calcium Carbonate 750 Mg Tab.Chew) 750 mg PO Q4H PRN PRN Reason: Heartburn Doxycycline Monohydrate (Doxycycline Monohydrate 100 Mg Capsule) 100 mg PO Q12H [facility] Last Admin: 09/25/24 08:48 Dose: 100 mg Documented By: TRAVON Empagliflozin (Empagliflozin 10 Mg Tablet) 10 mg PO DAILY [facility] Last Admin: 09/25/24 08:48 Dose: 10 mg Documented By: TRAVON Enoxaparin Sodium (Enoxaparin Sodium 40 Mg/0.4 Ml Syringe) 40 mg SUBCUT Q24H [facility] Last Admin: 09/25/24 17:01 Dose: 40 mg Documented By: TRAVON Fluticasone/Vilanterol (Fluticasone/Vilanterol 100/25 Blst.W.Dev) 1 puff INHALE DAILY [facility] Last Admin: 09/25/24 08:46 Dose: 1 puff Documented By: PAULO Furosemide (Furosemide 40 Mg/4 Ml Vial) 40 mg IVPUSH BID [facility]; Protocol Last Admin: 09/25/24 08:48 Dose: 40 mg Documented By: TRAVON Gabapentin (Gabapentin 300 Mg Capsule) 300 mg PO BID [facility] Last Admin: 09/25/24 08:49 Dose: 300 mg Documented By: TRAVON Glucose (Glucose Gel 15 Gm Gel..Gram.) 15 gm PO Q15M PRN; Protocol PRN Reason: per Hypoglycemia Standing Ord. Dextrose (D10) 250 mls @ 750 mls/hr IV Q15M PRN; Protocol PRN Reason: per Hypoglycemia Standing Ord. Insulin Glargine (Insulin Glargine,Hum.Rec.Anlog 100 Unit/Ml 10 Ml Vial) 50 unit SUBCUT BEDTIME [facility] Last Admin: 09/24/24 21:02 Dose: Not Given Documented By: WILVER Non-Admin Reason: Physician Held Med Insulin Glargine (Insulin Glargine,Hum.Rec.Anlog 100 Unit/Ml 10 Ml Vial) 50 unit SUBCUT DAILY [facility] Last Admin: 09/25/24 08:49 Dose: 50 unit Documented By: TRAVON Insulin Human Lispro (Insulin Lispro 100 Unit/Ml 3 Ml Vial) 0 unit SUBCUT QIDACHS [facility]; Protocol Last Admin: 09/25/24 17:02 Dose: 8 unit Documented By: TRAVON Insulin Human Lispro (Insulin Lispro 100 Unit/Ml 3 Ml Vial) 8 unit SUBCUT QIDACHS [facility] Last Admin: 09/25/24 16:47 Dose: Not Given Documented By: BALTAZAR Non-Admin Reason: patients blood sugar not within limits of adm Lamotrigine (Lamotrigine 25 Mg Tablet) 25 mg PO BEDTIME [facility] Last Admin: 09/24/24 21:06 Dose: 25 mg Documented By: WILVER Levalbuterol HCl (Levalbuterol Hcl 1.25 Mg/3 Ml Vial.Neb) 1.25 mg INHALE Q2H PRN PRN Reason: Shortness of Breath/Wheezing Last Admin: 09/24/24 05:12 Dose: 1.25 mg Documented By: CONCEPCION Levalbuterol HCl (Levalbuterol Hcl 1.25 Mg/3 Ml Vial.Neb) 1.25 mg INHALE RQ4H WHILE AWAKE [facility] Last Admin: 09/25/24 15:35 Dose: 1.25 mg Documented By: PAULO Magnesium Hydroxide (Milk Of Magnesia 30 Ml Oral.Susp) 30 ml PO DAILY PRN PRN Reason: Constipation Melatonin (Melatonin 3 Mg Tablet) 6 mg PO BEDTIME PRN PRN Reason: Insomnia Non-Formulary Medication (Dulaglutide [Trulicity]) 4.5 mg SUBCUT ARREGUIN [facility] Nystatin (Nystatin Powder 15 Gm Bottle) 1 appl TOPICAL BID [facility]; Protocol Last Admin: 09/25/24 08:59 Dose: 1 appl Documented By: TRAVON Prazosin HCl (Prazosin Hcl 1 Mg Capsule) 2 mg PO BEDTIME [facility]; Protocol Last Admin: 09/24/24 21:04 Dose: Not Given Documented By: WILVER Non-Admin Reason: Physician Held Med Quetiapine Fumarate (Quetiapine Fumarate 25 Mg Tablet) 25 mg PO BEDTIME [facility] Last Admin: 09/24/24 21:06 Dose: 25 mg Documented By: WILVER Quetiapine Fumarate (Quetiapine Fumarate 25 Mg Tablet) 25 mg PO DAILY PRN PRN Reason: Agitation Sodium Chloride (0.9 % Sodium Chloride Flush 3 Ml Syringe) 3 ml IVFLUSH QSHIFT [facility] Last Admin: 09/25/24 17:01 Dose: 3 ml Documented By: TRAVON Labs 09/23/24 10:07 09/25/24 09:47 Labs: Laboratory Results - last 24 hr 09/24/24 09/24/24 09/24/24 19:43 20:50 23:32 Anion Gap Estim Creat Clear Calc Estimated GFR POC Glucose 182 H 151 H 169 H Random Glucose Calcium 09/25/24 09/25/24 09/25/24 03:29 08:07 09:47 Anion Gap 20 Estim Creat Clear Calc 163.8 Estimated GFR > 60 POC Glucose 206 H 191 H Random Glucose 260 H Calcium 9.0 09/25/24 09/25/24 11:36 16:02 Anion Gap Estim Creat Clear Calc Estimated GFR POC Glucose 184 H 203 H Random Glucose Calcium Assessment and Plan (1) CHF (congestive heart failure): Status: Acute Plan A 42-year-old male with morbid obesity, uncontrolled diabetes, and bipolar disorder presented to the hospital with complaints of shortness of breath, and found to have hyperglycemia with mild acidosis, acute lactic acidosis Shortness of breath--likely multifactorial including obesity hypoventilation syndrome, hyperglycemia, possible asthma exacerbation and bronchitis -inhalers, doxy for bronchitis, lasix for heart failures echo:Left ventricular systolic function is low normal. The visually estimated ejection fraction is between 50-55% trop and bnp normal. cxr-?pulm congestion d/w cardio-sob less likely due to cardiac ,possible pulm eval to see if it is due to pulm issues. stop lasix,will check res viral panel, chest ct. pulm eval added. metabolic acidosis, early dka --resolved. Diabetes, uncontrolled with hyperglycemia and non-complicance, hgb A1C = 13 -he has not been taking meds in at aleast a week -Lantus Lantus adjusted to 50 bid, SSI, and pre-meal, add jardiance 10 mg daily. Acute lactic acidosis --not due to sepsis, trended bryant LEA--pre-renal d/t volume depletion from hyperglycemia and glucosuria, resolved with ivf Suspected MARTIN--CPAP at night Morbid obesity--weight loss advised Bipolar--continue home meds, resolved. Mild hyPonatremia likely d/t Pseudohyponatremia from hyperlycemia DVT Prophylaxis: lovenox Full code ongoing inpatient need for management for hyperglycemia with acidosis, shortness of breath-need repirtaory status monitering an dpulm eval Quality Stroke Does the patient have a stroke diagnosis?: No VTE Prior VTE?: No VTE Risk Level:: Medical - moderate - high VTE Device Contraindication: Treatment Not Indicated VTE Drug Contraindication: N/A - Med Ordered
[2024-09-25 19:52] LABS: Glucose, Whole Blood 201 mg/dL (60-115)
--- NOTE | 2024-09-25 21:15 | PC.RT ---
Pt refused CPAP. States he is to uncomfortable in bed and will not be able to stepan. States he willl wear when he goes home
[2024-09-25] MEDS: lamoTRIgine 25 MG TABLET PO (22:21)
[2024-09-25] MEDS: Prazosin HCL 1 MG CAPSULE 2 MG PO (22:21)
[2024-09-25] MEDS: QUEtiapine Fumarate 25 MG TABLET PO (22:21)
[2024-09-26] VITALS (7 sets, daily range): BP systolic 111–132; BP diastolic 66–74; PULSE 100–130; RESP 17–20; TEMP 36.2–36.4; O2SAT 90–98; BMI 63.9
[2024-09-26 07:23] LABS: Glucose, Whole Blood 166 mg/dL (60-115)
[2024-09-26] MEDS: Acetaminophen 325 MG TABLET 650 MG PO (07:32)
[2024-09-26] MEDS: Doxycycline Monohydrate 100 MG CAPSULE PO (07:32)
[2024-09-26] MEDS: Gabapentin 300 MG CAPSULE PO (07:33)
[2024-09-26] MEDS: Empagliflozin 10 MG TABLET PO (07:33)
[2024-09-26] MEDS: 0.9 % Sodium Chloride Flush 3 ML SYRINGE IVFLUSH ×2 (07:33→11:26)
[2024-09-26] MEDS: Insulin Lispro 100 UNIT/ML 3 ML VIAL SUBCUT ×3 (07:33→16:31)
[2024-09-26] MEDS: Insulin Glargine,Hum.rec.anlog 100 UNIT/ML 10 ML VIAL 50 UNIT SUBCUT (07:34)
[2024-09-26] MEDS: levalbuterol HCL 1.25 MG/3 ML VIAL.NEB INHALE ×3 (08:22→15:25)
[2024-09-26] MEDS: Fluticasone/Vilanterol 100/25 BLST.W.DEV 1 PUFF INHALE (08:22)
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
[2024-09-26] MEDS: methylPREDNISolone Sod Succ 40 MG/ML VIAL IVPUSH (09:17)
[2024-09-26] MEDS: Furosemide 20 MG TABLET PO (09:17)
[2024-09-26] MEDS: Nystatin Powder 15 GM BOTTLE 1 APPL TOPICAL (09:19)
[2024-09-26 10:18] LABS: Erythrocyte Sedimentation Rate 79 MM/HR (0-15)
[2024-09-26 11:29] LABS: Glucose, Whole Blood 173 mg/dL (60-115)
[2024-09-26 11:57] LABS: Adenovirus PCR Not Detected (Not Detect.); Bordetella parapertussis PCR Not Detected (Not Detect.); Bordetella pertussis PCR Not Detected (Not Detect.); Chlamydia pneumoniae PCR Not Detected (Not Detect.); Coronavirus 229E PCR Not Detected (Not Detect.); Coronavirus HKU1 PCR Not Detected (Not Detect.); Coronavirus NL63 PCR Not Detected (Not Detect.); Coronavirus OC43 PCR Not Detected (Not Detect.); Human metapneumovirus PCR Not Detected (Not Detect.); Influenza A PCR Not Detected (Not Detect.); Influenza B PCR Not Detected (Not Detect.); Mycoplasma pneumoniae PCR Not Detected (Not Detect.); Parainfluenza 1 PCR Not Detected (Not Detect.); Parainfluenza 2 PCR Not Detected (Not Detect.); Parainfluenza 3 PCR Not Detected (Not Detect.); Parainfluenza 4 PCR Not Detected (Not Detect.); RSV PCR Not Detected (Not Detect.); Rhino/Enterovirus PCR Not Detected (Not Detect.)
--- NOTE | 2024-09-26 12:37 | P.CDIM_ITS ---
PROVIDER RESPONSE TEXT: To clarify, the appropriate diagnosis supported by the clinical indicators: Mild intermittent: mild intermittent asthma excerebation QUERY TEXT: PHYSICIAN'S DOCUMENTATION REQUEST Date of Query: 09/26/2024 09:11 AM EDT Patient Name: Fazal Carlson Admit Date: 09/22/2024 Dear Teodora Schroeder MD, A review of the medical record indicates additional documentation may be needed. Please review below and update the documentation accordingly. The diagnosis of asthma was documented in the record on 09/25/24. Additional clinical indicators from the record include: SOB likely multifactorial including obesity hypoventilation syndrome, hyperglycemia, possible asthma exacerbation and bronchitis -inhalers, doxy for bronchitis Based on the above, please clarify in the Progress Notes further specificity regarding the type and a cuity of the asthma: Mild intermittent Please specify if with or without acute exacerbation or status asthmaticus Mild persistent Please specify if with or without acute exacerbation or status asthmaticus Moderate persistent Please specify if with or without acute exacerbation or status asthmaticus Severe persistent Please specify if with or without acute exacerbation or status asthmaticus Exercise induced Please specify if with or without acute exacerbation or status asthmaticus Chronic obstructive asthma and indicate if with acute lower respiratory infection Please specify if with or without acute exacerbation or status asthmaticus Asthma with underlying COPD and indicate if with acute lower respiratory infection Please specify if with or without acute exacerbation or status asthmaticus Other (explain) Clinically unable to determine (explain) Thank you, Ying May RN Use of terms such as suspected, likely, concern for, or probable (associated with a specific diagnosi s that is being evaluated, monitored, or treated as if it exists) are acceptable and can be coded in the inpatient se tting, when documented at the time of discharge. Please use your independent medical judgment in providing your response. THIS QUERY IS PART OF THE PERMANENT MEDICAL RECORD
[2024-09-26 12:48] LABS: SARS-CoV-2 PCR Not Detected (Not Detect.)
--- NOTE | 2024-09-26 12:56 | MHC.CM.PN ---
Per rounds, pt. is not ready for DC, he is being treated with IV steriods. CM to follow for DC needs.
[2024-09-26 16:21] LABS: Glucose, Whole Blood 226 mg/dL (60-115)
[2024-09-26] MEDS: Insulin Lispro 100 UNIT/ML 3 ML VIAL 8 UNIT SUBCUT (16:31)
--- NOTE | 2024-09-26 16:56 | P.DS_ITS ---
DS: Providers Provider Date of Service: 09/26/24 Date of admission: 09/22/24 15:49 Date of discharge: 09/26/24 Primary care physician: MARY Lemons Consults: 09/24/24 07:57 Consult to Cardiology Routine Consulting Provider: [facility] Reason for consultation: heart failure 09/25/24 11:18 Consult to Pulmonology Routine Consulting Provider: [facility] Reason for consultation: Hypoxia and dyspnea unclear etiology Has provider been notified: No Attending physician on discharge: Teodora Schroeder Discharging clinician: Teodora Schroeder DS: Diagnosis Discharge Diagnosis (1) Acute respiratory failure: Status: Acute (2) Asthma with exacerbation: Status: Acute (3) Pneumonitis: Status: Acute DS: Summary Hospital Course Hospital Course: HPI:42-year-old male with morbid obesity, uncontrolled diabetes, and bipolar disorder presented to the hospital with complaints of shortness of breath that began several hours prior to arrival. Initial evaluation showed a blood glucose level of 584 mg/dL, lactic acidosis with a level of 5.2, and a chest X-ray suggestive of possible pulmonary edema. BNP was 15. He was treated with bronchodilators and IV steroids for presumed COPD, along with IV fluids and insulin for hyperglycemia with mild acidosis. His blood glucose has since decreased to 387 mg/dL. The patient admits to not taking his medications, including insulin, for nearly a week. Hospital course:Patient was admitted to the hospital because of shortness of breath multifactorial including obesity hypoventilation syndrome, hyperglycemia, possible asthma mild intermittent exacerbation and penumonitis , also thought to have possible CHF exacerbation(CHF with preserved EF): Patient received nebs, IV Lasix, antibiotics-patient shortness of breath and hypoxia somewhat improving chest CT showed atypical congestion versus atypical infection: Seen by Pulmonary patient was given IV steroids in addition. With above supportive care patient seems to be improved significantly-patient is asymptomatic, no hypoxia no shortness a breath. Patient will be going home with prednisone taper 20 mg daily for 5 days then 10 mg daily for 5 days. In addition patient was seen by Cardiology and recommended to start on Lasix 40 mg daily upon discharge. Patient was given CHF and diabetic education in detail. If weight gain more than 2 lb a week or more patient need to get his Lasix adjusted outpatient. Four morbid obesity patient was strongly encouraged to lose weight and cutdown calories. In addition patient diabetic medications adjusted Lantus 50 units daily, sliding scale also on Jardiance. plan: prednisone taper 20 mg daily for 5 days then 10 mg daily for 5 days. doxycycline 100 mg po bid Lasix 40 mg daily obesity patient was strongly encouraged to lose weight and cutdown calories. Patient is to follow-up BMP, hemoglobin A1c levels out patiently in 1 week. Also patient is to follow-up with Pulmonary and cardio Cardio may arrange their own appointment. Assessment plan coordination time spent 40 minute. Patient understand in agreement with the above plan. Time Attestation Total time managing care of this patient today: 40 mintues. Discharge Coordination Time (in mins): 40 min Quality: Safe Use of Opioids Does Pt have an Active Cancer Diagnosis on the Problem List?: No Quality: Stroke Does the patient have a stroke diagnosis?: No Physical Exam Vital Signs: Vital Signs: Last Vital Signs Temp 97.3 F 09/26/24 15:09 Pulse 106 H 09/26/24 15:25 Resp 18 09/26/24 15:25 BP 116/74 09/26/24 15:09 Pulse Ox 95 09/26/24 15:09 O2 Del Method Room Air 09/26/24 15:09 O2 Flow Rate 4 09/26/24 07:17 BMI result Body Mass Index 63.9 General: AO X 3, no acute distress, morobid obesity Resp: CTA bilateral CVS: S1,S2,RRR GI: +BS, NT, no distention Skin: No rash Neuro: motor grossly intact Psych: appropriate affect DS: Data Data Completed and Pending Labs on day of discharge: Laboratory Results - last 24 hr 09/25/24 09/25/24 09/26/24 17:45 19:36 07:19 ESR POC Glucose 201 H 166 H Respiratory Panel [place] See Note Adenovirus (Rapid PCR) Not Detected B.pert (TEM-PCR) Not Detected B.parapertussis DNA PCR Not Detected C. pneumoniae DNA (PCR) Not Detected Coronavirus OC43 (PCR) Not Detected Coronavirus HKU1 (PCR) Not Detected Coronavirus 229E (PCR) Not Detected Coronavirus NL63 (PCR) Not Detected Human Metapneumovir PCR Not Detected Influenza A (RT-PCR) Not Detected Influenza B (RT-PCR) Not Detected M. pneumoniae (PCR) Not Detected Parainfluenza 1 (PCR) Not Detected Parainfluenza 2 (PCR) Not Detected Parainfluenza 3 (PCR) Not Detected Parainfluenza 4 (PCR) Not Detected RSV (PCR) Not Detected Entero/Rhino (PCR) Not Detected SARS-CoV-2 RNA (RT-PCR) Not Detected 09/26/24 09/26/24 09/26/24 09:28 11:18 16:16 ESR 79 H POC Glucose 173 H 226 H Respiratory Panel [place] Adenovirus (Rapid PCR) B.pert (TEM-PCR) B.parapertussis DNA PCR C. pneumoniae DNA (PCR) Coronavirus OC43 (PCR) Coronavirus HKU1 (PCR) Coronavirus 229E (PCR) Coronavirus NL63 (PCR) Human Metapneumovir PCR Influenza A (RT-PCR) Influenza B (RT-PCR) M. pneumoniae (PCR) Parainfluenza 1 (PCR) Parainfluenza 2 (PCR) Parainfluenza 3 (PCR) Parainfluenza 4 (PCR) RSV (PCR) Entero/Rhino (PCR) SARS-CoV-2 RNA (RT-PCR) Preliminary micro results at discharge 09/22/24 09:04 Blood Culture - Preliminary Blood - Venous No growth after 48 hours. 09/22/24 09:04 Blood Culture - Preliminary Blood - Venous No growth after 48 hours. Imaging Chest x-ray: Radiologist's impression: ITS Impressions Chest X-Ray 09/22/24 07:19 IMPRESSION: Mildly prominent central pulmonary vasculature and interstitial markings are most suggestive of pulmonary edema, however, today's examination is limited secondary to patient body habitus. Viral infiltrate not completely excluded. Follow-up imaging recommended status post treatment to ensure resolution. Electronically signed by: Jeffrey Briseno MD 09/22/2024 08:[address] 09/25/24 18:57 IMPRESSION: 1. Moderate interlobular septal thickening and patchy groundglass opacification of the right greater than left upper lungs. This appearance may be seen with interstitial pulmonary edema, although the upper lung distribution would be somewhat atypical (potentially due to patient positioning). Developing atypical/viral pulmonary infection could have a similar appearance in the appropriate clinical setting. 2. Hepatic steatosis. Electronically signed by: Crow Greer DO 09/26/2024 02:08 AM EDT RP Discharge Plan Discharge Anticipated Discharge Date/Time: 09/26/24 16:33 Patient Disposition: Home, Self-Care Discharge Diagnosis: hypoxia, pneumonitis Referrals: Chirag Ruiz PA [Primary Care Provider] - 1 Week Sixto Miranda MD [Physician] - 1 Week Discharge Medications: New doxycycline monohydrate 100 mg Capsule 100 mg PO Q12H Qty: 10 0RF Jardiance 10 mg Tablet 10 mg PO DAILY Qty: 90 0RF alcohol swabs Pads, Medicated 1 pad TOPICAL QIDACHS Qty: 100 0RF Rx Instructions: Use four times a day or as directed. insulin lispro [Humalog KwikPen Insulin] 100 unit/mL insulin pen 0 sliding scale dose SUBCUT QIDACHS Qty: 15 0RF Rx Instructions: Blood Sugar: <150 - 0 units 151-200 - 2 units 201-250 - 4 units 251-300 - 6 units 301-350 - 8 units >350 - 10 units insulin glargine [Lantus Solostar U-100 Insulin] 100 unit/mL (3 mL) insulin pen 50 unit SUBCUT DAILY Qty: 15 0RF prednisone 10 mg tablet See Rx Instructions .ROUTE .COMPLEX Qty: 30 0RF Rx Instructions: Prednisone 20 mg p.o. daily for 5 days, then prednisone 10 mg p.o. daily for 5 days. furosemide [Lasix] 40 mg tablet 40 mg PO DAILY Qty: 60 0RF insulin lispro 100 unit/mL insulin pen 8 unit subcut TID Qty: 15 0RF Continued quetiapine 25 mg tablet 25 mg PO BEDTIME ibuprofen 800 mg tablet 800 mg PO Q8H PRN (Reason: pain) lamotrigine 25 mg tablet 25 mg PO BEDTIME Rx Instructions: Take 1 tablet at bedtime for 14 days, then take 2 tablets at bedtime. gabapentin 300 mg capsule 300 mg PO BID metformin 500 mg tablet extended release 24 hr 1,000 mg PO BID prazosin 2 mg capsule 2 mg PO BEDTIME fluticasone propion-salmeterol [Advair HFA] 115-21 mcg/actuation HFA aerosol inhaler 2 puff INHALATION BID quetiapine 25 mg tablet 25 mg PO DAILY PRN (Reason: Agitation) Trulicity 4.5 mg/0.5 mL pen injector 4.5 mg subcut ARREGUIN Qty: 1 0RF Discontinued Humulin R U-500 (Conc) Kwikpen 500 unit/mL (3 mL) insulin pen 100 unit SUBCUT DAILY@0800 Humulin R U-500 (Conc) Kwikpen 500 unit/mL (3 mL) insulin pen 75 unit SUBCUT BID@1200,1700 Discharge Orders: Discharge Order (Routine); Ordered 09/26/24 Ordered By: Teodora Schroeder Diet: Advance to usual diet Activity on Discharge: As tolerated Stand Alone Forms: Patient Portal Discharge page Print Language: [place] Care Plan Goals: Patient was admitted to the hospital because of shortness of breath multifactorial including obesity hypoventilation syndrome, hyperglycemia, possible asthma mild intermittent exacerbation and penumonitis , also thought to have possible CHF exacerbation(CHF with preserved EF): Patient received nebs, IV Lasix, antibiotics-patient shortness of breath and hypoxia somewhat improving chest CT showed atypical congestion versus atypical infection: Seen by Pulmonary patient was given IV steroids in addition. With above supportive care patient seems to be improved significantly-patient is asymptomatic, no hypoxia no shortness a breath. Patient will be going home with prednisone taper 20 mg daily for 5 days then 10 mg daily for 5 days. In addition patient was seen by Cardiology and recommended to start on Lasix 40 mg daily upon discharge. Patient was given CHF and diabetic education in detail. If weight gain more than 2 lb a week or more patient need to get his Lasix adjusted outpatient. obesity patient was strongly encouraged to lose weight and cutdown calories. In addition patient diabetic medications adjusted Lantus 50 units daily, sliding scale also on Jardiance. Patient is to follow-up BMP, hemoglobin A1c levels out patiently in 1 week. Also patient is to follow-up with Pulmonary and cardio Cardio may arrange their own appointment. Health Concerns: prednisone taper 20 mg daily for 5 days then 10 mg daily for 5 days. Lasix 40 mg daily obesity patient was strongly encouraged to lose weight and cutdown calories. Plan of Treatment: as above. Assessment: as above. Discharge Date/Time: 09/26/24 18:10
--- NOTE | 2024-09-27 11:38 | P.CDIM_ITS ---
PROVIDER RESPONSE TEXT: To clarify, the appropriate diagnosis supported by the clinical indicators: Other (explain): no bronchitis ,has pneumonitis QUERY TEXT: PHYSICIAN'S DOCUMENTATION REQUEST Date of Query: 09/26/2024 09:13 AM EDT Patient Name: Fazal Carlson Admit Date: 09/22/2024 Dear Teodora Schroeder MD, A review of the medical record indicates additional documentation may be needed. Please review below and update the documentation accordingly. Clinical Indicators: Per Hospitalist Progress Note 09/25/24: doxy for bronchitis pulm eval added Clarify which of the following accurately represents the acuity of the Bronchitis. Possible options might include: Acute Acute on chronic Compensated Chronic stable condition Remission Other (explain) Clinically unable to determine (explain) Thank you, Ying May RN Use of terms such as suspected, likely, concern for, or probable (associated with a specific diagnosi s that is being evaluated, monitored, or treated as if it exists) are acceptable and can be coded in the inpatient se tting, when documented at the time of discharge. Please use your independent medical judgment in providing your response. THIS QUERY IS PART OF THE PERMANENT MEDICAL RECORD
[2024-10-05 06:04] LABS: Legionella Ag Urine Not Detected (Not Detected)
[2024-10-06 15:18] LABS: Asperg fumigatus Precip Abs NEGATIVE (NEGATIVE); Micropoly faeni Abs NEGATIVE (NEGATIVE); Pigeon serum Abs NEGATIVE (NEGATIVE); Saccharo pora viridis Abs NEGATIVE (NEGATIVE); Thermo candidus Abs NEGATIVE (NEGATIVE); Thermoa vulgaris #1 NEGATIVE (NEGATIVE)
== END 2024-09-26 18:10 | disposition home or self-care (01) | DRG 202 ==
LOC: HO.ED 10:42 → HO.EDOVER 16:22 → HO.IMC 17:01
PROVIDERS: Hospitalist; Registered Nurse Emergency; Admitting Provider Internal Medicine; Emergency Provider Emergency Medicine Emergency Medical Services; PCP Student in an Organized Health Care Education/Training Program; Visit Provider Internal Medicine
DX: J45.41 Moderate persistent asthma with (acute) exacerbation (principal); E10.10 Type 1 diabetes mellitus with ketoacidosis without coma; I50.33 Acute on chronic diastolic (congestive) heart failure; E66.2 Morbid (severe) obesity with alveolar hypoventilation; Z68.44 Body mass index [BMI] 60.0-69.9, adult; N17.9 Acute kidney failure, unspecified; J98.4 Other disorders of lung; F17.210 Nicotine dependence, cigarettes, uncomplicated; Z71.3 Dietary counseling and surveillance; F31.9 Bipolar disorder, unspecified; Z71.6 Tobacco abuse counseling; Z20.822 Contact with and (suspected) exposure to COVID-19; Z91.148 Patient's other noncompliance with medication regimen for other reason; Z79.51 Long term (current) use of inhaled steroids; Z79.84 Long term (current) use of oral hypoglycemic drugs; Z79.899 Other long term (current) drug therapy
CPT/HCPCS: 0241U; 36415; 71046; 71250; 80048; 80053; 81001; 82010; 82803; 82947; 83036; 83605; 83880; 84484; 85025; 85027; 85379; 85652; 86331; 86606; 86609; 87040; 87449; 87633; 93005; 93306; 94640; 94660; 99285; J0696; J1650; J1940; J2919; J7120; Q9957

== ENCOUNTER → 2024-09-22 07:17 | Outpatient (BNV) | payer MEDICARE, MEDICAID, SELFPAY | PROVIDERS: Admitting Provider Internal Medicine; Emergency Provider Emergency Medicine Emergency Medical Services; PCP Student in an Organized Health Care Education/Training Program; Visit Provider Internal Medicine Cardiovascular Disease | DX: R00.0 Tachycardia, unspecified (principal) | CPT/HCPCS: 93010 ==

== ENCOUNTER 2024-09-22 15:49 | Outpatient (BNV) | payer MEDICARE, MEDICAID, SELFPAY | END 2024-09-23 10:12 | PROVIDERS: Admitting Provider Internal Medicine; Emergency Provider Emergency Medicine Emergency Medical Services; PCP Student in an Organized Health Care Education/Training Program; Visit Provider Internal Medicine Cardiovascular Disease | DX: R00.0 Tachycardia, unspecified (principal) | CPT/HCPCS: 93010 ==

== ENCOUNTER 2024-09-22 15:49 | Outpatient (BNV) | payer MEDICARE, MEDICAID, SELFPAY | END 2024-09-24 07:00 | PROVIDERS: Admitting Provider Internal Medicine; Emergency Provider Emergency Medicine Emergency Medical Services; PCP Student in an Organized Health Care Education/Training Program; Visit Provider Internal Medicine | DX: I50.9 Heart failure, unspecified (principal) | CPT/HCPCS: 93306 ==

== ENCOUNTER → 2024-09-22 15:49 | Outpatient (BNV) | payer MEDICARE, MEDICAID, SELFPAY | PROVIDERS: Admitting Provider Internal Medicine; Emergency Provider Emergency Medicine Emergency Medical Services; PCP Student in an Organized Health Care Education/Training Program; Visit Provider Internal Medicine | DX: J96.01 Acute respiratory failure with hypoxia (principal); J45.41 Moderate persistent asthma with (acute) exacerbation; E11.65 Type 2 diabetes mellitus with hyperglycemia; J98.4 Other disorders of lung | CPT/HCPCS: 99223; 99232; 99239 ==

== ENCOUNTER → 2024-09-22 15:49 | Outpatient (BNV) | payer MEDICARE, MEDICAID, SELFPAY | PROVIDERS: Admitting Provider Internal Medicine; Emergency Provider Emergency Medicine Emergency Medical Services; PCP Student in an Organized Health Care Education/Training Program; Visit Provider Hospitalist | DX: J96.01 Acute respiratory failure with hypoxia (principal); J45.41 Moderate persistent asthma with (acute) exacerbation; J98.4 Other disorders of lung | CPT/HCPCS: 99223 ==

== ENCOUNTER → 2024-09-22 15:49 | Outpatient (BNV) | payer MEDICARE, MEDICAID, SELFPAY | PROVIDERS: Admitting Provider Internal Medicine; Emergency Provider Emergency Medicine Emergency Medical Services; PCP Student in an Organized Health Care Education/Training Program; Visit Provider Internal Medicine | DX: J96.00 Acute respiratory failure, unspecified whether with hypoxia or hypercapnia (principal); J45.901 Unspecified asthma with (acute) exacerbation; E11.65 Type 2 diabetes mellitus with hyperglycemia | CPT/HCPCS: 99223; 99233 ==